=== PATIENT | female | born 1995 | race Two or more races ===

== ENCOUNTER 2025-06-08 01:41 | Inpatient (IN) | payer MEDICAID, OTHER ==
[~2025-06-08] VITALS: Ht 149.9 cm; Wt 97.1 kg
[2025-06-08] VITALS (7 sets, daily range): BP systolic 103–113; BP diastolic 62–80; PULSE 79–95; RESP 17–18; TEMP 97.7–98.4; O2SAT 94–100
--- NOTE | 2025-06-08 01:50 | ECG ---
[facility] Test Date: 2025-06-08 Test Time: 01:48:01 Pat Name: BRYNN AVILES Department: ED Room: [address] [place] [address] Gender: F Principal Examiner: FABIOLA : 1995 Requested By: YAHIR PERRY Order Number: [id number] Reading MD: Miguel Anne Measurements Intervals [place] Rate: 98 P: 0 NH: 0 QRS: 32 QRSD: 82 T: 0 QT: 335 QTc: 428 Interpretive Statements Atrial fibrillation Nonspecific T abnormalities, lateral leads Electronically Signed On 06-08-2025 17:50:37 PST by Miguel Anne Please click the below link to view image of tracing.
[2025-06-08 02:07] LABS: Hematocrit 43.7 % (36.0-46.0); Hemoglobin 14.7 g/dL (12.2-16.2); Mean Corpuscular Hemoglobin 29.5 pg (28.0-32.0); Mean Corpuscular Volume 87.7 fL (80.0-100.0); Nucleated Red Blood Cells % 0.0 %
[2025-06-08 02:18] LABS: Chloride 104 mmol/L (98-107); Potassium 4.7 mmol/L (3.5-5.1); Sodium 141 mmol/L (136-145)
[2025-06-08 02:19] LABS: Anion Gap 6 (5-15); Calcium 9.8 mg/dL (8.7-10.4); Carbon Dioxide 31 mmol/L (20-31)
--- NOTE | 2025-06-08 02:22 | ED.PDOC ---
HPI Comments 29 year old female presents to ER with complaints of chest pain x 1 day. Patient states she developed sudden onset of 8/10 sharp left sided chest pain with associated numbness/tingling radiation down left arm and shortness of breath at 8 p.m. prior to arrival to ER while resting at home. Notes she took a "Flexeril" for her pain without relief. Patient presents to ER ambulatory on arrival, with steady gait, in no distress and states her pain is worse with deep inspiration. Denies fever, n/v, recent illness, abdominal pain or any further symptoms/complaints Chief Complaint: Chest Pain Time Seen by MD: 01:44 Primary Care Provider: UNKNOWN Reviewed Notes: Nurses Notes, Medications, Allergies Allergies: Coded Allergies: Amitriptyline (Verified Allergy, Unknown, 06/08/25) Gabapentin (Verified Allergy, Unknown, 06/08/25) Sumatriptan (Verified Allergy, Unknown, 06/08/25) Home Meds Reported Medications Cyclobenzaprine Hcl (Cyclobenzaprine Hcl) 10 Mg Tab, 20 MG PO Q8HR for 30 Days, MG 06/08/25 Belimumab (Benlysta) 200 Mg/Ml Inj, 200 MG SC, INJ 06/08/25 Cholecalciferol (Vitamin D) 5,000 Unit Cap, 5000 UNIT PO, CAP 06/08/25 Rimegepant Sulfate (Nurtec) 75 Mg Tab, 75 MG PO, TAB 06/08/25 Lisinopril (Lisinopril) 2.5 Mg Tab, 2.5 MG PO DAILY for 30 Days, MG 06/08/25 Mycophenolate Mofetil (Cellcept) 500 Mg Tab, 1 TAB PO BID, #180 TAB 3 Refills 06/08/25 Hydroxychloroquine Sulfate (Hydroxychloroquine Sulfat) 200 Mg Tab, 200 MG PO for 30 Days, MG 06/08/25 Information Source: Patient Mode of Arrival: Ambulatory Past Medical History Past Medical History (Other): Lupus ITP Chronic back pain Surgical History: Appendectomy, Tubal Ligation Surgical History (Other): Right carpal tunnel surgery Social History Lives In: Home Constitutional: denies: chills, diaphoresis, fatigue, fever, malaise, sweats, weakness, others EENTM: denies: blurred vision, double vision, ear bleeding, ear discharge, ear drainage, ear pain, ear ringing, eye pain, eye redness, hearing loss, mouth pain, mouth swelling, nasal discharge, nose bleeding, nose congestion, nose pain, photophobia, tearing, throat pain, throat swelling, voice changes, others Respiratory: denies: cough, hemoptysis, orthopnea, SOB at rest, shortness of breath, SOB with excertion, stridor, wheezing, others Cardiovascular: reports: others (As stated in HPI) Gastrointestinal: denies: abdomen distended, abdominal pain, blood streaked bowels, constipated, diarrhea, dysphagia, difficulty swallowing, hematemesis, melena, nausea, poor appetite, poor fluid intake, rectal bleeding, rectal pain, vomiting, others Genitourinary: denies: abnormal vagina bleeding, burning, dyspareunia, dysuria, flank pain, frequency, hematuria, incontinence, pain, , vagina discharge, urgency, others Neurological: reports: others (As stated in HPI) Musculoskeletal: denies: back pain, gout, joint pain, joint swelling, muscle pain, muscle stiffness, neck pain, others Integumetry: denies: bruises, change in color, change in hair/nails, dryness, laceration, lesions, lumps, rash, wounds, others Allergic/Immunocompromised: denies: Difficulty Healing, Frequent Infections, Hives, Itching, others Hematologic/Lymphatic: denies: anemia, blood clots, easy bleeding, easy bruising, swollen glands, others Endocrine: denies: excessive hunger, excessive sweating, excessive thirst, excessive urination, flushing, intolerance to cold, intolerance to heat, unexplained weight gain, unexplained weight loss, others Psychiatric: denies: anxiety, bipolar disorder, depression, hopeless, panic disorder, schizophrenia, sleepless, suicidal, others Physical Exam General Appearance: No Apparent Distress, Obese HEENT: Normal ENT Inspection, PERRL/EOMI, Pharynx Normal, TMs Normal Neck: Full Range of Motion, Non-Tender, Normal Respiratory: Lungs Clear, No Accessory Muscle Use, No Respiratory Distress, N ormal Breath Sounds, Other (TTP to left upper chest wall noted) Cardiovascular: No Murmur, No Gallop, Regular Rate/Rhythm Breast Exam: Deferred Gastrointestinal: Non Tender, No Pulsatile Mass, Soft Genitalia: Deferred Pelvic: Deferred Rectal: Deferred Extremities: Normal capillary refill, Normal range of motion Neurologic: Alert, No Motor Deficits, Normal Affect, Normal Mood, No Sensory Deficits Cerebellar Function: Normal Reflexes: Normal Skin: Dry, Normal Color, Warm Peripheral Pulses: 2+ Radial (R), 2+ Radial (L), 2+ Brachial (R), 2+ Brachial (L) Lymphatic: No Adenopathy EKG EKG : Pulse Rate (adult): 98 Cardiac Rhythm: NSR (SR - No ST elevation/depression) Comments 2nd EKG reviewed Pulse rate - 89 Cardiac Rhythm - SR ST - Normal 3rd EKG reviewed Pulse rate- 84 Cardiac Rhythm - SR ST - normal Was a procedure done? Was a procedure done?: No Sedation Sedation?: No CP Differential Dx Differential Diagnosis: Hyperthyroidism, NC, Pulmonary Embolus, Sinus Tachycardia X-Ray, Labs, Meds, VS Vital Signs Date Time Temp Pulse Resp B/P (MAP) Pulse Ox O2 Delivery O2 Flow Rate FiO2 06/08/25 04:08 84 06/08/25 03:31 98 06/08/25 03:00 89 06/08/25 02:50 89 06/08/25 02:38 98 06/08/25 02:29 06/08/25 01:55 97.3 102 18 109/79 99 97.3 06/08/25 01:48 98 Lab Test 06/08/25 02:58 06/08/25 02:45 06/08/25 01:57 Range/Units Erythrocyte Sedimentation Rate 2 0-20 mm/hr Troponin I High Sensitivity < 3 L < 3 L </=34 ng/L Urine Color Light-yellow Yellow Urine Clarity Clear Clear Urine pH 6.0 5.0-9.0 Urine Specific [place] 1.023 1.001-1.035 Urine Protein Trace H Negative Urine Ketones Negative Negative Urine Blood Negative Negative /uL Urine Nitrite Negative Negative Urine Bilirubin Negative Negative Urine Urobilinogen Normal Negative mg/dL Urine Leukocyte Esterase 2+ Negative /uL Urine RBC 4 0 - 4 /hpf Urine Microscopic WBC 28 H 0-5 /HPF Urine Squamous Epithelial Cells Few <5 /hpf Urine Bacteria None seen None Seen /hpf Urine Glucose Normal Normal mg/dL White Blood Count 8.5 4.4-10.8 10^3/uL Red Blood Count 4.99 4.0-5.20 10^6/uL Hemoglobin 14.7 12.2-16.2 g/dL Hematocrit 43.7 36.0-46.0 % Mean Corpuscular Volume 87.7 80.0-100.0 fL Mean Corpuscular Hemoglobin 29.5 28.0-32.0 pg Mean Corpuscular Hemoglobin Concent 33.6 32.0-36.0 g/dL Red Cell Distribution Width 13.6 11.8-14.3 % Platelet Count 289 140-450 10^3/uL Mean Platelet Volume 7.8 6.9-10.8 fL Neutrophils (%) (Auto) 55.1 37.0-80.0 % Lymphocytes (%) (Auto) 32.0 10.0-50.0 % Monocytes (%) (Auto) 10.6 0.0-12.0 % Eosinophils (%) (Auto) 1.6 0.0-7.0 % Basophils (%) (Auto) 0.7 0.0-2.0 % Neutrophils # (Auto) 4.7 1.6-8.6 10 ^3/uL Lymphocytes # (Auto) 2.7 0.4-5.4 10 ^3/uL Monocytes # (Auto) 0.9 0-1.3 10 ^3/uL Eosinophils # (Auto) 0.1 0-0.8 10 ^3/uL Basophils # (Auto) 0.1 0-0.2 10 ^3/uL Nucleated Red Blood Cells 0.0 % Prothrombin Time 10.3 9.3-11.8 sec Prothrombin Time INR 0.97 0.9-1.15 Activated Partial Thromboplast Time 36.2 H 24.5-34.5 SEC D-Dimer, Quantitative < 0.19 0.0-0.49 mg/L FEU Sodium Level 141 136-145 mmol/L Potassium Level 4.7 3.5-5.1 mmol/L Chloride Level 104 98-107 mmol/L Carbon Dioxide Level 31 20-31 mmol/L Anion Gap 6 5-15 Blood Urea Nitrogen 14 9-23 mg/dL Creatinine 0.84 0.550-1.02 mg/dL Glomerular Filtration Rate Calc 97 >90 mL/min BUN/Creatinine Ratio 16.7 10.0-20.0 Serum Glucose 90 74-106 mg/dL Calcium Level 9.8 8.7-10.4 mg/dL Magnesium Level 2.2 1.6-2.6 mg/dL B-Type Natriuretic Peptide 1.60 0-100 pg/mL Thyroid Stimulating Hormone (TSH) 1.28 0.55-4.78 uIU/mL Hepatitis B Surface Antibody Pending Hepatitis C Antibody Pending Current Medications Medications (Trade) Dose Ordered Sig/Amira Route Start Time Stop Time Status Last Admin Aspirin 325 mg ONCE ONCE PO 06/08/25 02:30 06/08/25 02:31 DC 06/08/25 02:33 Ketorolac Tromethamine (Toradol Injection) 60 mg ONCE ONCE IM 06/08/25 03:15 06/08/25 03:16 DC 06/08/25 03:14 Ceftriaxone Sodium 50 ml @ 100 mls/hr ONCE ONCE IV 06/08/25 04:30 06/08/25 04:59 DC 06/08/25 05:14 PATIENT: BRYNN AVILESACCT: [id number]: [id number] : 1995 LOC: ER ROOM / BED: / AGE / SEX: 29 / F ADM STATUS: REG ER SERVICE 1 ORDERING PHYSICIAN: YAHIR PERRY PROCEDURE(s): CXR2 - CHEST TWO VIEWS ROUTINE REASON: chest pain ORDER NUMBER(s): [id number], ACCESSION NUMBER(s): [id number] CHEST RADIOGRAPH Indication: chest pain Technique: Frontal and lateral view of the chest was obtained Comparison: None FINDINGS: Lines and Tubes: None Lungs: Clear Pleura: No effusion. No pneumothorax. Cardiomediastinal contours: Unremarkable Bones: Unremarkable IMPRESSION: 1. No evidence of acute disease. ATED BY: DAGOBERTO DANIELS MD DICTATED DATE/TIME: 06/08/25246 SIGNED BY: DAGOBERTO DANIELS MD SIGNED DATE/TIME: 06/08/25246 CC: CBC reviewed - unremarkable BMP reviewed - unremarkable TSH reviewed - normal Magnesium reviewed- normal ESR reviewed - normal PT/PTT reviewed without any significant abnormalities D-dimer reviewed - normal Troponin reviewed- normal 2nd Troponin reviewed - normal 3rd Troponin ordered Urinalysis reviewed-urine leukocyte esterase 2+ Chest x-ray reviewed EKG reviewed 2nd EKG reviewed 3rd EKG reviewed Aspirin 325 mg p.o. ordered Toradol 60 mg IM ordered Hep-lock IV ordered Rocephin 1 g IV ordered Patient presents with persistent chest pain, normal serial EKG/troponin and history of lupus Patient admitted to hospitalist for pleuritic chest pain and need for cardiac observation/need for cardiac consultation Images Reviewed?: Images reviewed and evaluated by me Time of 1ST Reevaluation: 02:27 Reevaluation 1ST: N/A Patient Education/Counseling: Diagnosis, Treatment, Prognosis, Need For Follow Up Family Education/Counseling: No Family Present SEPSIS Sepsis Screen Date sepsis recognized/suspect: Jun 08, 2025 Time Sepsis recognized/suspect: 201 Recent Procedure: Yes (EPIDURAL FOR BACK PAIN ) On Antibiotic Therapy: No Respiratory Rate >20: No Heart Rate >90: No Temp<36 C (96.8 F) or >38.3 C: No SBP <90 or MAP <65 mmHG: No New Acute Mental Status Change: No Is the patient on CPAP, BIPAP,: No Physician Orders Electrocardigram (06/08/25 01:46) Electrocardigram (06/08/25 02:46) Director Of Reservations (06/08/25 02:12) Blood Pressure (06/08/25 02:12) Pulse Oximetry (06/08/25 02:12) Chest Two Views Routine (06/08/25 02:12) Heplock Iv (06/08/25 ) Electrocardigram (06/08/25 04:06) Vital Signs Date Time Temp Pulse Resp B/P (MAP) Pulse Ox O2 Delivery O2 Flow Rate FiO2 06/08/25 04:08 84 06/08/25 03:31 98 06/08/25 03:00 89 06/08/25 02:50 89 06/08/25 02:38 98 06/08/25 02:29 06/08/25 01:55 97.3 102 18 109/79 99 97.3 06/08/25 01:48 98 Laboratory Tests Test 06/08/25 01:57 White Blood Count 8.5 10^3/uL (4.4-10.8) Departure 1 Departure Time of Disposition: 03:40 Impression: Primary Impression: Pleuritic chest pain Additional Impressions: UTI (urinary tract infection) Qualified Codes: N30.00 - Acute cystitis without hematuria History of lupus Disposition: ADMITTED INPATIENT Condition: Stable Critical Care Note Critical Care Time?: No Stability Stability form required: No Heart Score Heart Score: Heart Score Response (Comments) Value History Slightly Suspicious 0 EKG Normal 0 Age <45 0 Risk Factors 1 or 2 risk factors 1 Troponin Normal limit 0 Total 1 YAHIR PERRY Jun 08, 2025 02:22
[2025-06-08 02:24] LABS: BUN/Creatinine Ratio 16.7 (10.0-20.0); Blood Urea Nitrogen 14 mg/dL (9-23); Glucose 90 mg/dL (74-106)
--- NOTE | 2025-06-08 02:50 | DVH ---
CHEST RADIOGRAPH Indication: chest pain Technique: Frontal and lateral view of the chest was obtained Comparison: None FINDINGS: Lines and Tubes: None Lungs: Clear Pleura: No effusion. No pneumothorax. Cardiomediastinal contours: Unremarkable Bones: Unremarkable IMPRESSION: 1. No evidence of acute disease.
--- NOTE | 2025-06-08 02:52 | ECG ---
[facility] Test Date: 2025-06-08 Test Time: 02:50:08 Pat Name: BRYNN AVILES Department: ER Room: [address] [place] [address] Gender: F Post Partum Nurse: KUSH : 1995 Requested By: YAHIR PERRY Order Number: [id number] Reading MD: Miguel Anne Measurements Intervals [place] Rate: 89 P: 45 MO: 104 QRS: 44 QRSD: 83 T: 31 QT: 346 QTc: 421 Interpretive Statements Sinus rhythm Short MO interval Electronically Signed On 06-08-2025 17:50:48 PST by Miguel Anne Please click the below link to view image of tracing.
[2025-06-08 02:54] LABS: INR 0.97 (0.9-1.15); Partial Thromboplastin Time 36.2 SEC (24.5-34.5); Prothrombin Time 10.3 sec (9.3-11.8)
[2025-06-08] MEDS: KETOROLAC TROMETH 60MG/2ML VIAL IM ONE (03:14)
[2025-06-08 03:33] LABS: Urine Protein, UAD TRACE (Negative)
[2025-06-08] MEDS ORDERED: IBUP-1456 PO (03:37)
[2025-06-08] MEDS ORDERED: BACDST PO (03:37)
--- NOTE | 2025-06-08 04:10 | ECG ---
[facility] Test Date: 2025-06-08 Test Time: 04:08:39 Pat Name: BRYNN AVILES Department: ER Room: [address] [place] [address] Gender: F Role Player: SHERIN : 1995 Requested By: YAHIR PERRY Order Number: [id number] Reading MD: Miguel Anne Measurements Intervals [place] Rate: 84 P: 51 RI: 107 QRS: 53 QRSD: 83 T: 35 QT: 356 QTc: 421 Interpretive Statements Sinus rhythm Short RI interval Electronically Signed On 06-08-2025 17:50:59 PST by Miguel Anne Please click the below link to view image of tracing.
--- NOTE | 2025-06-08 04:52 | DVHHP2 ---
Review of Systems Allergies: Coded Allergies: Amitriptyline (Verified Allergy, Unknown, 06/08/25) Gabapentin (Verified Allergy, Unknown, 06/08/25) Sumatriptan (Verified Allergy, Unknown, 06/08/25) Exam Vital Signs Vital Signs Date Time Temp Pulse Resp B/P (MAP) Pulse Ox O2 Delivery O2 Flow Rate FiO2 06/08/25 03:31 98 06/08/25 01:55 97.3 18 109/79 99 97.3 Labs/Xrays Labs Test 06/08/25 02:58 06/08/25 02:45 06/08/25 01:57 Range/Units Erythrocyte Sedimentation Rate 2 0-20 mm/hr Troponin I High Sensitivity < 3 L </=34 ng/L Urine Color Light-yellow Yellow Urine Clarity Clear Clear Urine pH 6.0 5.0-9.0 Urine Specific [place] 1.023 1.001-1.035 Urine Protein Trace H Negative Urine Ketones Negative Negative Urine Blood Negative Negative /uL Urine Nitrite Negative Negative Urine Bilirubin Negative Negative Urine Urobilinogen Normal Negative mg/dL Urine Leukocyte Esterase 2+ Negative /uL Urine RBC 4 0 - 4 /hpf Urine Microscopic WBC 28 H 0-5 /HPF Urine Squamous Epithelial Cells Few <5 /hpf Urine Bacteria None seen None Seen /hpf Urine Glucose Normal Normal mg/dL White Blood Count 8.5 4.4-10.8 10^3/uL Red Blood Count 4.99 4.0-5.20 10^6/uL Hemoglobin 14.7 12.2-16.2 g/dL Hematocrit 43.7 36.0-46.0 % Mean Corpuscular Volume 87.7 80.0-100.0 fL Mean Corpuscular Hemoglobin 29.5 28.0-32.0 pg Mean Corpuscular Hemoglobin Concent 33.6 32.0-36.0 g/dL Red Cell Distribution Width 13.6 11.8-14.3 % Platelet Count 289 140-450 10^3/uL Mean Platelet Volume 7.8 6.9-10.8 fL Neutrophils (%) (Auto) 55.1 37.0-80.0 % Lymphocytes (%) (Auto) 32.0 10.0-50.0 % Monocytes (%) (Auto) 10.6 0.0-12.0 % Eosinophils (%) (Auto) 1.6 0.0-7.0 % Basophils (%) (Auto) 0.7 0.0-2.0 % Neutrophils # (Auto) 4.7 1.6-8.6 10 ^3/uL Lymphocytes # (Auto) 2.7 0.4-5.4 10 ^3/uL Monocytes # (Auto) 0.9 0-1.3 10 ^3/uL Eosinophils # (Auto) 0.1 0-0.8 10 ^3/uL Basophils # (Auto) 0.1 0-0.2 10 ^3/uL Nucleated Red Blood Cells 0.0 % Prothrombin Time 10.3 9.3-11.8 sec Prothrombin Time INR 0.97 0.9-1.15 Activated Partial Thromboplast Time 36.2 H 24.5-34.5 SEC D-Dimer, Quantitative < 0.19 0.0-0.49 mg/L FEU Sodium Level 141 136-145 mmol/L Potassium Level 4.7 3.5-5.1 mmol/L Chloride Level 104 98-107 mmol/L Carbon Dioxide Level 31 20-31 mmol/L Anion Gap 6 5-15 Blood Urea Nitrogen 14 9-23 mg/dL Creatinine 0.84 0.550-1.02 mg/dL Glomerular Filtration Rate Calc 97 >90 mL/min BUN/Creatinine Ratio 16.7 10.0-20.0 Serum Glucose 90 74-106 mg/dL Calcium Level 9.8 8.7-10.4 mg/dL Magnesium Level 2.2 1.6-2.6 mg/dL B-Type Natriuretic Peptide 1.60 0-100 pg/mL Thyroid Stimulating Hormone (TSH) 1.28 0.55-4.78 uIU/mL SEPSIS Sepsis Screen Date sepsis recognized/suspect: Jun 08, 2025 Time Sepsis recognized/suspect: 0202 Recent Procedure: Yes (EPIDURAL FOR BACK PAIN ) On Antibiotic Therapy: No Respiratory Rate >20: No Heart Rate >90: No Temp<36 C (96.8 F) or >38.3 C: No SBP <90 or MAP <65 mmHG: No New Acute Mental Status Change: No Is the patient on CPAP, BIPAP,: No Physician Orders Plugger (06/08/25 02:12) Blood Pressure (06/08/25 02:12) Pulse Oximetry (06/08/25 02:12) Chest Two Views Routine (06/08/25 02:12) Heplock Iv (06/08/25 ) Troponin-I Hs (06/08/25 04:06) Ceftriaxone 1gm/50ml (Rocephin) (06/08/25 04:30) Ceftriaxone Ivpb Rocephin (06/08/25 09:00) Lisinopril Tablet (Zestril Tablet) (06/08/25 10:00) Thyroid Stimulating Hormone (06/08/25 04:48) Lipid Panel (06/08/25 04:48) Vital Signs Date Time Temp Pulse Resp B/P (MAP) Pulse Ox O2 Delivery O2 Flow Rate FiO2 06/08/25 03:31 98 06/08/25 03:00 89 06/08/25 02:50 89 06/08/25 02:38 98 06/08/25 02:29 06/08/25 01:55 97.3 102 18 109/79 99 97.3 06/08/25 01:48 98 Laboratory Tests Test 06/08/25 01:57 White Blood Count 8.5 10^3/uL (4.4-10.8) Medications Medications Dose Ordered Sig/Amira Route Start Time Stop Time Status Last Admin Dose Admin Aspirin 325 mg ONCE ONCE PO 06/08/25 02:30 06/08/25 02:31 DC 06/08/25 02:33 325 MG Ketorolac Tromethamine 60 mg ONCE ONCE IM 06/08/25 03:15 06/08/25 03:16 DC 06/08/25 03:14 60 MG Assessment/Plan Plan discussed with: Patient My Orders Orders - JANETH VAUGHN Procedure Category Date Status Time Ceftriaxone Ivpb PHA 06/08/25 Verified Rocephin 09:00 Lisinopril Tablet PHA 06/08/25 Verified (Zestril Tablet) 10:00 Thyroid Stimulating LAB 06/08/25 Verified Hormone 04:48 Lipid Panel LAB 06/08/25 Verified 04:48 Date of Service: Jun 08, 2025 Billing Provider: JANETH VAUGHN Common Visit Codes: [id number] INP/OBS CARE (HIGH) JANETH VAUGHN Jun 08, 2025 04:52
[2025-06-08] MEDS: MORPHINE SULFATE 4 MG/ML SYR/VIAL IV ONE (05:15)
[2025-06-08] MEDS: ONDANSETRON HCL 4 MG/2 ML VIAL IV PRN (05:15)
[2025-06-08] MEDS: NITROGLYCERIN 0.4 MG SL TAB SL ONE (05:16)
[2025-06-08] MEDS: ONDANSETRON ODT 4 MG TAB PO ONE (05:16)
[2025-06-08] MEDS: NITROGLYCERIN 0.4 MG SL TAB SL PRN (08:05)
[2025-06-08 09:02] LABS: Triglycerides 84 mg/dL (< 150)
[2025-06-08 09:04] LABS: HDL Cholesterol 52 mg/dL (40-59)
[2025-06-08 09:05] LABS: Cholesterol 157 mg/dL (< 200)
[2025-06-08] MEDS: ACETAMINOPHEN 325 MG TAB PO PRN (09:37)
[2025-06-08] MEDS: LISINOPRIL 5 MG TAB PO SCH (10:00)
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
[2025-06-08] MEDS: KETOROLAC TROMETH 30 MG/ML 1ML VIAL IV ONE (15:07)
[2025-06-08] MEDS: MORPHINE SULFATE 4 MG/ML SYR/VIAL IV PRN (16:59)
[2025-06-08] MEDS ORDERED: HYDR200T36 PO (17:59)
[2025-06-08] MEDS ORDERED: MYCO500T PO (18:03)
[2025-06-08] MEDS ORDERED: RIME75TA PO (18:03)
[2025-06-08] MEDS ORDERED: LISI2.5T47 PO (18:03)
[2025-06-08] MEDS ORDERED: CHOL500035 PO (18:04)
[2025-06-08] MEDS ORDERED: [UNRECOGNIZED DRUG - CODE] SC (18:05)
[2025-06-08] MEDS ORDERED: CYCL-839 PO (18:07)
--- NOTE | 2025-06-08 19:35 | DVHSR ---
APPROVED REPORT EXAM: Two-dimensional and M-mode echocardiogram with Doppler and color Doppler. Blood Pressure: 103/53 mmHg INDICATION Chest Pain RISK FACTORS Height: 4' 11", Weight: 208 DIMENSIONS LVDd 4.4 (3.8-5.7cm) LA (2D) 3.3 (1.9-4.0cm) Aortic Root 2.5 (2.0-3.7cm) LVDs 3.3 (2.5-4.0cm) LA (MM) (1.9-4.0cm) Aortic Cusp Exc 1.6 (1.5-2.0cm) EF (%) 50.0 (55-70%) Rt. Atrium 3.1 (1.9-4.0cm) Asc. Aorta cm IVSd 0.8 (0.7-1.1cm) RV (D) (1.8-2.4cm) PWd 0.8 (0.7-1.1cm) Mitral Valve Mitral Mitral Stenosis E wave 0.80m/s MV Mean GR. mmHg A wave 0.60m/s MV Peak GR. mmHg E/A ratio 1.3 2D MVA cm2 Aortic Valve Aortic Valve Aortic Stenosis V1 0.70m/s AO Mean GR. 4mmHg V2 1.30m/s AO Peak GR. 7mmHg LVOT Diameter 1.9 (1.8-2.4cm) Doppler EDIN 1.53cm2 Pulmonic Valve V2 0.60m/s Conclusion Technically good study. Sinus rhythm. Valves are normal. EF of 60% with normal RV function. Dopplers unremarkable. No pericardial effusion masses or vegetations.
[2025-06-08] MEDS: MORPHINE SULFATE INJ 2 MG/ml SYRG IV PRN (21:32)
--- NOTE | 2025-06-08 23:07 | DVHHP2 ---
History of Present Illness Reason for Visit: Chest pain History of Present Illness 29-year-old female presents for evaluation of chest pain. Patient reports a two day history of left-sided sharp chest pain. She reports some pain that radiates to her left arm. She also reports mild shortness for breath. No cough or fever. No other acute complaints. Past Medical History Hypertension, lupus, ITP Past Surgical History Appendectomy, tubal ligation Family History Noncontributory Smoke: No ALCOHOL: none Drugs: None Lives: with Family Review of Systems Review of Systems Review of systems are currently negative otherwise addressed in HPI. Allergies: Coded Allergies: Amitriptyline (Verified Allergy, Unknown, 06/08/25) Gabapentin (Verified Allergy, Unknown, 06/08/25) Sumatriptan (Verified Allergy, Unknown, 06/08/25) Medications Current Medications Medications Dose Ordered Sig/Amira Route Start Time Stop Time Status Last Admin Dose Admin Ceftriaxone Sodium 50 ml @ 100 mls/hr DAILY@09 IV 06/09/25 09:00 Lisinopril 2.5 mg DAILY PO 06/08/25 10:00 Ondansetron HCl 4 mg Q4HP PRN IV 06/08/25 05:00 06/08/25 05:15 4 MG Acetaminophen 650 mg Q6HP PRN PO 06/08/25 05:00 06/08/25 09:37 650 MG Nitroglycerin 0.4 mg Q5MINP PRN SL 06/08/25 05:00 06/08/25 08:05 0.4 MG Morphine Sulfate 2 mg Q30M PRN IV 06/08/25 05:00 06/08/25 16:59 2 MG Morphine Sulfate 2 mg Q4HPRN PRN IV 06/08/25 18:15 06/08/25 21:32 2 MG Exam Vital Signs Vital Signs Date Time Temp Pulse Resp B/P (MAP) Pulse Ox O2 Delivery O2 Flow Rate FiO2 06/08/25 21:32 83 18 110/80 06/08/25 20:50 98.4 100 98.4 06/08/25 20:00 Room Air* 0 21 Exam Gen: 29-year-old female in mild distress, morbidly obese Skin: Warm, dry, normal color and texture, no rash. HEENT: Normocephalic atraumatic, mucous membranes moist and pink. Neck: Cervical and supraclavicular nodes normal without enlargement, trachea is midline, thyroid gland is normal without masses. Pulmonary: Clear to auscultation and percussion bilaterally. Cardiac: Regular rate and rhythm. No murmur Abdomen: Soft, nontender, nondistended, bowel sounds present all 4 quadrants, no guarding, no rigidity, no organomegaly. Extremities: No cyanosis, clubbing, no edema Neuro: Cranial nerves II through XII grossly intact, normal affect and speech, no focal motor deficits. Labs/Xrays ORDERING PHYSICIAN: YAHIR PERRY PROCEDURE(s): CXR2 - CHEST TWO VIEWS ROUTINE REASON: chest pain ORDER NUMBER(s): [id number], ACCESSION NUMBER(s): [id number] CHEST RADIOGRAPH Indication: chest pain Technique: Frontal and lateral view of the chest was obtained Comparison: None FINDINGS: Lines and Tubes: None Lungs: Clear Pleura: No effusion. No pneumothorax. Cardiomediastinal contours: Unremarkable Bones: Unremarkable IMPRESSION: 1. No evidence of acute disease. Labs Test 06/08/25 05:22 06/08/25 02:58 06/08/25 02:45 06/08/25 01:57 Range/Units Troponin I High Sensitivity 5 </=34 ng/L Triglycerides Level 84 < 150 mg/dL Cholesterol Level 157 < 200 mg/dL LDL Cholesterol 100 H < 100 mg/dL HDL Cholesterol 52 40-59 mg/dL Thyroid Stimulating Hormone (TSH) 1.27 0.55-4.78 uIU/mL Erythrocyte Sedimentation Rate 2 0-20 mm/hr Urine Color Light-yellow Yellow Urine Clarity Clear Clear Urine pH 6.0 5.0-9.0 Urine Specific [place] 1.023 1.001-1.035 Urine Protein Trace H Negative Urine Ketones Negative Negative Urine Blood Negative Negative /uL Urine Nitrite Negative Negative Urine Bilirubin Negative Negative Urine Urobilinogen Normal Negative mg/dL Urine Leukocyte Esterase 2+ Negative /uL Urine RBC 4 0 - 4 /hpf Urine Microscopic WBC 28 H 0-5 /HPF Urine Squamous Epithelial Cells Few <5 /hpf Urine Bacteria None seen None Seen /hpf Urine Glucose Normal Normal mg/dL White Blood Count 8.5 4.4-10.8 10^3/uL Red Blood Count 4.99 4.0-5.20 10^6/uL Hemoglobin 14.7 12.2-16.2 g/dL Hematocrit 43.7 36.0-46.0 % Mean Corpuscular Volume 87.7 80.0-100.0 fL Mean Corpuscular Hemoglobin 29.5 28.0-32.0 pg Mean Corpuscular Hemoglobin Concent 33.6 32.0-36.0 g/dL Red Cell Distribution Width 13.6 11.8-14.3 % Platelet Count 289 140-450 10^3/uL Mean Platelet Volume 7.8 6.9-10.8 fL Neutrophils (%) (Auto) 55.1 37.0-80.0 % Lymphocytes (%) (Auto) 32.0 10.0-50.0 % Monocytes (%) (Auto) 10.6 0.0-12.0 % Eosinophils (%) (Auto) 1.6 0.0-7.0 % Basophils (%) (Auto) 0.7 0.0-2.0 % Neutrophils # (Auto) 4.7 1.6-8.6 10 ^3/uL Lymphocytes # (Auto) 2.7 0.4-5.4 10 ^3/uL Monocytes # (Auto) 0.9 0-1.3 10 ^3/uL Eosinophils # (Auto) 0.1 0-0.8 10 ^3/uL Basophils # (Auto) 0.1 0-0.2 10 ^3/uL Nucleated Red Blood Cells 0.0 % Prothrombin Time 10.3 9.3-11.8 sec Prothrombin Time INR 0.97 0.9-1.15 Activated Partial Thromboplast Time 36.2 H 24.5-34.5 SEC D-Dimer, Quantitative < 0.19 0.0-0.49 mg/L FEU Sodium Level 141 136-145 mmol/L Potassium Level 4.7 3.5-5.1 mmol/L Chloride Level 104 98-107 mmol/L Carbon Dioxide Level 31 20-31 mmol/L Anion Gap 6 5-15 Blood Urea Nitrogen 14 9-23 mg/dL Creatinine 0.84 0.550-1.02 mg/dL Glomerular Filtration Rate Calc 97 >90 mL/min BUN/Creatinine Ratio 16.7 10.0-20.0 Serum Glucose 90 74-106 mg/dL Calcium Level 9.8 8.7-10.4 mg/dL Magnesium Level 2.2 1.6-2.6 mg/dL B-Type Natriuretic Peptide 1.60 0-100 pg/mL SEPSIS Sepsis Screen Date sepsis recognized/suspect: Jun 08, 2025 Time Sepsis recognized/suspect: 758 Recent Procedure: No On Antibiotic Therapy: No Respiratory Rate >20: No Heart Rate >90: No Temp<36 C (96.8 F) or >38.3 C: No SBP <90 or MAP <65 mmHG: No New Acute Mental Status Change: No Is the patient on CPAP, BIPAP,: No Physician Orders Hepatitis C Antibody (06/08/25 16:11) Hepatitis B Surface Antibody (06/08/25 16:11) Morphine Sulfate Injection (06/08/25 18:15) Transfer Orders (06/08/25 23:01) Ketorolac Injection (Toradol Injection) (06/08/25 23:15) Vital Signs Date Time Temp Pulse Resp B/P (MAP) Pulse Ox O2 Delivery O2 Flow Rate FiO2 06/08/25 21:32 83 18 110/80 06/08/25 20:50 98.4 83 17 110/80 (90) 100 98.4 06/08/25 20:00 Room Air* 0 21 06/08/25 19:16 97.7 79 17 103/63 (76) 98 97.7 06/08/25 18:45 Room Air* 0 21 06/08/25 17:29 90 16 108/72 06/08/25 17:00 98.2 95 18 113/76 (88) 99 98.2 06/08/25 16:59 99 19 113/76 Medications Medications Dose Ordered Sig/Amira Route Start Time Stop Time Status Last Admin Dose Admin Ketorolac Tromethamine 15 mg ONCE ONCE IV 06/08/25 14:00 06/08/25 14:02 DC 06/08/25 15:07 15 MG Morphine Sulfate 2 mg Q4HPRN PRN IV 06/08/25 18:15 06/08/25 21:32 2 MG Assessment/Plan Assessment/Plan Assessment Chest pain,? Musculoskeletal History of lupus Hypertension UTI Morbid obesity Plan Admit the patient to telemetry to the hospitalist Cardiology consultation Echocardiogram pending Resume home medications Continue treatment per orders. Plan discussed with: Patient My Orders Orders - JANETH VAUGHN Procedure Category Date Status Time Lisinopril Tablet PHA 06/08/25 In Process (Zestril Tablet) 10:00 Basic Metabolic Panel LAB 06/09/25 Verified 04:00 Admit ADMIT 06/08/25 Transmitted 04:48 Ondansetron Hcl PHA 06/08/25 In Process (Zofran) 05:00 Cardiac DIET 06/08/25 Transmitted Diet-2gna,Lofat,Lochol Breakfast Echo 2d Mode Cardiac US 06/08/25 Resulted DOP 04:48 Condition: Fair [facility] 06/08/25 In Process 04:48 Acetaminophen Tablet PHA 06/08/25 In Process (Tylenol Tablet) 05:00 Bedrest With Bathroom [facility] 06/08/25 In Process Privileg 04:48 Nitroglycerin [facility] 06/08/25 In Process Sublingual (Ntrostat 05:00 Stat Ekg For Chest [facility] 06/08/25 In Process Pain 04:48 Notify Md Of Changes [facility] 06/08/25 In Process From Base 04:48 Bagger Meat For [facility] 06/08/25 In Process 24 Hours 04:48 Emergency Dysrhythmia [facility] 06/08/25 In Process Protocol 04:48 Rhythm Strips Once [facility] 06/08/25 In Process Every Shift 04:48 Oxygen By Nasal RT 06/08/25 Transmitted Cannula 04:48 Ceftriaxone 1gm/50ml PHA 06/09/25 In Process (Rocephin) 09:00 Morphine Sulfate PHA 06/08/25 In Process Injection 05:00 Electrocardigram EKG 06/08/25 Logged 08:14 Transfer Orders XFER 06/08/25 Transmitted 23:01 Ketorolac Injection PHA 06/08/25 Transmitted (Toradol Injection) 23:15 Date of Service: Jun 08, 2025 Billing Provider: BRYNN GHOSH Common Visit Codes: [id number] INP/OBS CARE (HIGH) JANETH VAUGHN Jun 08, 2025 23:07
[2025-06-08] MEDS ORDERED: KETOROLAC TROMETH 30 MG/ML 1ML VIAL IV PRN (23:15)
[2025-06-09 03:55] VITALS: BP 105/70; PULSE 80; RESP 17; TEMP 97.5; O2SAT 98
[2025-06-09 06:03] LABS: Potassium 4.5 mmol/L (3.5-5.1); Sodium 142 mmol/L (136-145)
[2025-06-09 06:04] LABS: Anion Gap 7 (5-15); Calcium 9.6 mg/dL (8.7-10.4); Carbon Dioxide 28 mmol/L (20-31)
[2025-06-09 06:09] LABS: BUN/Creatinine Ratio 12.7 (10.0-20.0); Blood Urea Nitrogen 10 mg/dL (9-23); Glucose 84 mg/dL (74-106)
[2025-06-09 06:10] LABS: Chloride 107 mmol/L (98-107)
[2025-06-09 08:00] VITALS: PULSE 77; RESP 15; O2SAT 98
[2025-06-09 08:55] VITALS: BP 110/72; PULSE 85; RESP 16; TEMP 97.7; O2SAT 98
[2025-06-09] MEDS: KETOROLAC TROMETH 30 MG/ML 1ML VIAL IV PRN (09:30)
[2025-06-09 12:45] VITALS: BP 104/68; PULSE 86; RESP 18; TEMP 98.7; O2SAT 95
[2025-06-09] MEDS ORDERED: HYDR-4902 PO (16:10)
[2025-06-09] MEDS ORDERED: NALO4SPR2 (16:10)
--- NOTE | 2025-06-09 16:18 | DVHDS2 ---
Discharge Summary Date of Admission Jun 08, 2025 at 04:48 Date of Discharge: Jun 09, 2025 Labs/Diagnostic Data: Laboratory Results Test 06/09/25 05:28 06/08/25 05:22 06/08/25 02:58 06/08/25 02:45 Sodium Level 142 mmol/L (136-145) Potassium Level 4.5 mmol/L (3.5-5.1) Chloride Level 107 mmol/L (98-107) Carbon Dioxide Level 28 mmol/L (20-31) Anion Gap 7 (5-15) Blood Urea Nitrogen 10 mg/dL (9-23) Creatinine 0.79 mg/dL (0.550-1.02) Glomerular Filtration Rate Calc 104 mL/min (>90) BUN/Creatinine Ratio 12.7 (10.0-20.0) Serum Glucose 84 mg/dL (74-106) Calcium Level 9.6 mg/dL (8.7-10.4) Troponin I High Sensitivity 5 ng/L (</=34) Triglycerides Level 84 mg/dL (< 150) Cholesterol Level 157 mg/dL (< 200) LDL Cholesterol 100 mg/dL (< 100) HDL Cholesterol 52 mg/dL (40-59) Thyroid Stimulating Hormone (TSH) 1.27 uIU/mL (0.55-4.78) Erythrocyte Sedimentation Rate 2 mm/hr (0-20) Urine Color Light-yellow (Yellow) Urine Clarity Clear (Clear) Urine pH 6.0 (5.0-9.0) Urine Specific [place] 1.023 (1.001-1.035) Urine Protein Trace (Negative) Urine Ketones Negative (Negative) Urine Blood Negative /uL (Negative) Urine Nitrite Negative (Negative) Urine Bilirubin Negative (Negative) Urine Urobilinogen Normal mg/dL (Negative) Urine Leukocyte Esterase 2+ /uL (Negative) Urine RBC 4 /hpf (0 - 4) Urine Microscopic WBC 28 /HPF (0-5) Urine Squamous Epithelial Cells Few /hpf (<5) Urine Bacteria None seen /hpf (None Seen) Urine Glucose Normal mg/dL (Normal) Test 06/08/25 01:57 White Blood Count 8.5 10^3/uL (4.4-10.8) Red Blood Count 4.99 10^6/uL (4.0-5.20) Hemoglobin 14.7 g/dL (12.2-16.2) Hematocrit 43.7 % (36.0-46.0) Mean Corpuscular Volume 87.7 fL (80.0-100.0) Mean Corpuscular Hemoglobin 29.5 pg (28.0-32.0) Mean Corpuscular Hemoglobin Concent 33.6 g/dL (32.0-36.0) Red Cell Distribution Width 13.6 % (11.8-14.3) Platelet Count 289 10^3/uL (140-450) Mean Platelet Volume 7.8 fL (6.9-10.8) Neutrophils (%) (Auto) 55.1 % (37.0-80.0) Lymphocytes (%) (Auto) 32.0 % (10.0-50.0) Monocytes (%) (Auto) 10.6 % (0.0-12.0) Eosinophils (%) (Auto) 1.6 % (0.0-7.0) Basophils (%) (Auto) 0.7 % (0.0-2.0) Neutrophils # (Auto) 4.7 10 ^3/uL (1.6-8.6) Lymphocytes # (Auto) 2.7 10 ^3/uL (0.4-5.4) Monocytes # (Auto) 0.9 10 ^3/uL (0-1.3) Eosinophils # (Auto) 0.1 10 ^3/uL (0-0.8) Basophils # (Auto) 0.1 10 ^3/uL (0-0.2) Nucleated Red Blood Cells 0.0 % Prothrombin Time 10.3 sec (9.3-11.8) Prothrombin Time INR 0.97 (0.9-1.15) Activated Partial Thromboplast Time 36.2 SEC (24.5-34.5) D-Dimer, Quantitative < 0.19 mg/L FEU (0.0-0.49) Magnesium Level 2.2 mg/dL (1.6-2.6) B-Type Natriuretic Peptide 1.60 pg/mL (0-100) Other Laboratory Tests 06/09/25 05:28 06/08/25 01:57 Brief Hx & Hospital Course: 29-year-old young female with a known history of lupus nephritis, systemic lupus erythematosus, ITP currently stable, morbid obesity class three presented to the hospital with the chest pain eventually patient was admitted to a monitored on telemetry 2D echo was done as well as Cardiology was consulted. Patient's chest pain is suspected secondary to costochondritis atypical pain. Patient's tropes are -12 lead EKG shows no acute STT wave changes. Patient is being discharged under stable condition. Condition at Discharge: Stable Final Diagnosis/Problems List 1. Chest pain acute TX ruled out, likely atypical chest pain secondary to costochondritis 2. Costochondritis 3. Lupus nephritis 4. Systemic lupus erythematosus 5. ITP currently platelet count stable 6. Morbid obesity classIII Discharge Disposition: Home SNF Discharge Will this Physician continue t: No Discharge Instruct/Medications Diet: Cardiac 2g Na,low cholest Activity: See Comment Activity comment: No driving, no signing legal documents, no playing on machinery while on narcotics. Follow Up/Referral: Follow up with the PCP in 1-2 weeks. 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 Continued Medications: Belimumab (Benlysta) 200 Mg/Ml Inj 200 MG SC, INJ Cholecalciferol (Vitamin D) 5,000 Unit Cap 5000 UNIT PO, CAP Cyclobenzaprine Hcl (Cyclobenzaprine Hcl) 10 Mg Tab 20 MG PO Q8HR for 30 Days, MG Hydroxychloroquine Sulfate (Hydroxychloroquine Sulfat) 200 Mg Tab 200 MG PO for 30 Days, MG Lisinopril (Lisinopril) 2.5 Mg Tab 2.5 MG PO DAILY for 30 Days, MG Mycophenolate Mofetil (Cellcept) 500 Mg Tab 1 TAB PO BID, #180 TAB 3 Refills Rimegepant Sulfate (Nurtec) 75 Mg Tab 75 MG PO, TAB Scheduled Cyclobenzaprine Hcl (Cyclobenzaprine Hcl), 20 MG PO Q8HR, (Reported) Lisinopril (Lisinopril), 2.5 MG PO DAILY, (Reported) Mycophenolate Mofetil (Cellcept), 1 TAB PO BID, (Reported) 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), 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 Patient was counseled about treatment plan, medications, possible side effects, patientverbalized understanding. All questions were answered to the best of my ability. This discharge took greater then 30 minutes in planning, reviewing documentation, counseling the patient, and discussing with other team members." ASSESSMENT ASSESSMENT Assessment 1. Chest pain acute TX ruled out, likely atypical chest pain secondary to costochondritis 2. Costochondritis 3. Lupus nephritis 4. Systemic lupus erythematosus 5. ITP currently platelet count stable 6. Morbid obesity classIII Date of Service: Jun 09, 2025 Billing Provider: SHIRLEY ZHANG MD Common Visit Codes: [id number]/OBS DISCH DAY >30min SHIRLEY ZHANG MD Jun 09, 2025 16:18
[2025-06-09 16:53] VITALS: PULSE 59
[2025-06-09 17:06] VITALS: BP 108/60; PULSE 94; RESP 19; TEMP 98.3; O2SAT 96
[2025-06-10 10:48] LABS: Hepatitis C Antibody Negative (Negative)
--- NOTE | 2025-06-13 07:06 | ECG ---
[facility] Test Date: 2025-06-08 Test Time: 08:12:39 Pat Name: BRYNN AVILES Department: Room: [address] [place] [address] 3 Gender: F [employer] Functional Tester: DR CABALLERO: 1995 Requested By: JANETH VAUGHN Order Number: [id number] Reading MD: Miguel Anne Measurements Intervals [place] Rate: 76 P: 47 SD: 115 QRS: 50 QRSD: 83 T: 29 QT: 385 QTc: 433 Interpretive Statements Sinus rhythm Borderline short SD interval Electronically Signed On 06-14-2025 9:54:02 PST by Miguel Anne Please click the below link to view image of tracing.
== END 2025-06-09 16:49 | disposition home or self-care (01) | DRG 203 ==
LOC: ER 01:41 → OVERFLOW 04:48 → TELE-EAST 18:43
PROVIDERS: ADMIT Internal Medicine; ATTEND Internal Medicine
DX: M94.0 Chondrocostal junction syndrome [Tietze] (principal); M32.14 Glomerular disease in systemic lupus erythematosus; G43.909 Migraine, unspecified, not intractable, without status migrainosus; I48.91 Unspecified atrial fibrillation; E66.813 Obesity, class 3; N39.0 Urinary tract infection, site not specified; I10 Essential (primary) hypertension; G89.29 Other chronic pain; Z88.8 Allergy status to other drugs, medicaments and biological substances; Z81.8 Family history of other mental and behavioral disorders; Z98.51 Tubal ligation status; Z68.41 Body mass index [BMI] 40.0-44.9, adult
CPT/HCPCS: 36415; 71046; 80048; 80061; 81001; 83735; 83880; 84443; 84484; 85025; 85379; 85610; 85652; 85730; 86706; 86803; 93005; 93306; 96365; 96372; 96375; G0378; J1885; J2405

== ENCOUNTER 2025-06-24 18:25 | Inpatient (IN) | payer MEDICAID ==
[~2025-06-24] VITALS: Ht 154.9 cm; Wt 97.0 kg
[~2025-06-24 18:25] MED LIST: CHOL500035 PO; CYCL-839 PO; HYDR-4902 PO; HYDR200T36 PO; LISI2.5T47 PO; MYCO500T PO; NALO4SPR2; RIME75TA PO; [UNRECOGNIZED DRUG - CODE] SC
[2025-06-24] MEDS ORDERED: SODIUM CHLORIDE 0.9% 1,000 ML IVB ONE (18:45)
[2025-06-24] MEDS: ACETAMINOPHEN 325 MG TAB PO ONE (18:51)
[2025-06-24] MEDS: SODIUM CHLORIDE 0.9% 1,400 ML IV ONE (18:59)
[2025-06-24] MEDS: MORPHINE SULFATE 4 MG/ML SYR/VIAL IV ONE (19:01)
[2025-06-24] MEDS: ONDANSETRON HCL 4 MG/2 ML VIAL IV ONE (19:01)
--- NOTE | 2025-06-24 19:34 | ED.PDOC ---
GI ASSESSMENT HPI Comments 29-year-old female who came to ER via EMS for abdominal pain. Patient is status post appendectomy, has been complaining of right lower quadrant abdominal pain since yesterday, radiating to her right flank. Associated nausea and vomiting. Denies any urinary symptoms such as dysuria or gross hematuria. Chief Complaint: Abdominal Pain Time Seen by MD: 19:34 Primary Care Provider: UNKNOWN Reviewed Notes: Nurses Notes Allergies: Coded Allergies: Amitriptyline (Verified Allergy, Unknown, 06/08/25) Gabapentin (Verified Allergy, Unknown, 06/08/25) Sumatriptan (Verified Allergy, Unknown, 06/08/25) Home Meds Active Scripts 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) 4 Mg/0.1 Ml Spr, 4 MG NA [employer], #2 SPRAY Prov:SHIRLEY ZHANG MD 06/09/25 Hydrocodone-Acetaminophen (Hydrocodone Bitartrate/AC 5-325 mg) 1 Tab Tab, 1 TAB PO Q8HP PRN, #10 TAB Prov:SHIRLEY ZHANG MD 06/09/25 Reported Medications Cyclobenzaprine Hcl (Cyclobenzaprine Hcl) 10 Mg Tab, 20 MG PO Q8HR for 30 Days, MG 06/08/25 Belimumab (Benlysta) 200 Mg/Ml Inj, 200 MG SC, INJ 06/08/25 Cholecalciferol (Vitamin D) 5,000 Unit Cap, 5000 UNIT PO, CAP 06/08/25 Rimegepant Sulfate (Nurtec) 75 Mg Tab, 75 MG PO, TAB 06/08/25 Lisinopril (Lisinopril) 2.5 Mg Tab, 2.5 MG PO DAILY for 30 Days, MG 06/08/25 Mycophenolate Mofetil (Cellcept) 500 Mg Tab, 1 TAB PO BID, #180 TAB 3 Refills 06/08/25 Hydroxychloroquine Sulfate (Hydroxychloroquine Sulfat) 200 Mg Tab, 200 MG PO for 30 Days, MG 06/08/25 Information Source: Patient Mode of Arrival: EMS Past Medical History PAST MEDICAL HISTORY: CKF, HTN Past Medical History (Other): Lupus Surgical History: Appendectomy, Tubal Ligation Social History Smoker: Non-Smoker Alcohol: Denies ETOH Use Drugs: Denies Drug Use Lives In: Home Constitutional: denies: chills, diaphoresis, fatigue, fever, malaise, sweats, weakness, others EENTM: denies: blurred vision, double vision, ear bleeding, ear discharge, ear drainage, ear pain, ear ringing, eye pain, eye redness, hearing loss, mouth pain, mouth swelling, nasal discharge, nose bleeding, nose congestion, nose pain, photophobia, tearing, throat pain, throat swelling, voice changes, others Respiratory: denies: cough, hemoptysis, orthopnea, SOB at rest, shortness of breath, SOB with excertion, stridor, wheezing, others Cardiovascular: denies: chest pain, dizzy spells, diaphoresis, Dyspnea on exertion, edema, irregular heart beat, left arm pain, lightheadedness, palpitations, PND, syncope, others Gastrointestinal: reports: abdominal pain, nausea, vomiting; denies: abdomen distended, blood streaked bowels, constipated, diarrhea, dysphagia, difficulty swallowing, hematemesis, melena, poor appetite, poor fluid intake, rectal bleeding, rectal pain, others Genitourinary: reports: flank pain; denies: abnormal vagina bleeding, burning, dyspareunia, dysuria, frequency, hematuria, incontinence, pain, , vagina discharge, urgency, others Neurological: denies: dizziness, fainting, headache, left sided numbness, left sided weakness, numbness, paresthesia, pre-existing deficit, right sided numbness, right sided weakness, seizure, speech problems, tingling, tremors, weakness, others Musculoskeletal: denies: back pain, gout, joint pain, joint swelling, muscle pain, muscle stiffness, neck pain, others Integumetry: denies: bruises, change in color, change in hair/nails, dryness, laceration, lesions, lumps, rash, wounds, others Allergic/Immunocompromised: denies: Difficulty Healing, Frequent Infections, Hives, Itching, others Hematologic/Lymphatic: denies: anemia, blood clots, easy bleeding, easy bruising, swollen glands, others Endocrine: denies: excessive hunger, excessive sweating, excessive thirst, excessive urination, flushing, intolerance to cold, intolerance to heat, unexplained weight gain, unexplained weight loss, others Psychiatric: denies: anxiety, bipolar disorder, depression, hopeless, panic disorder, schizophrenia, sleepless, suicidal, others Physical Exam General Appearance: No Apparent Distress, Normal HEENT: Normal ENT Inspection, Pharynx Normal, TMs Normal Neck: Full Range of Motion, Non-Tender, Normal, Normal Inspection Respiratory: Chest Non-Tender, Lungs Clear, No Accessory Muscle Use, No Respiratory Distress, Normal Breath Sounds Cardiovascular: No Edema, No JVD, No Murmur, No Gallop, Normal Peripheral Pulses, Regular Rate/Rhythm Breast Exam: Deferred Gastrointestinal: No Organomegaly, Non Tender, No Pulsatile Mass, Normal Bowel Sounds, Soft Genitalia: Deferred Pelvic: Deferred Rectal: Deferred Extremities: No calf tenderness, Normal capillary refill, Normal inspection, Normal range of motion, Non-tender, No pedal edema Musculoskeletal : Apperance: Normal Neurologic: Alert, pulp drier II-XII nml as Tested, No Motor Deficits, Normal Affect, Normal Mood, No Sensory Deficits Cerebellar Function: Normal Reflexes: Normal Skin: Dry, Normal Color, Warm Lymphatic: No Adenopathy Was a procedure done? Was a procedure done?: No GI differential Dx Differential Diagnosis: Cholecystitis, Constipation, Diverticular disease, Gastritis/PUD, Gastroenteritis, Ovarian cyst/torsion, UTI, Urolithiasis X-Ray, Labs, Meds, VS Vital Signs Date Time Temp Pulse Resp B/P (MAP) Pulse Ox O2 Delivery O2 Flow Rate FiO2 06/24/25 19:01 128 20 134/78 06/24/25 18:51 101.7 06/24/25 18:39 101.0 128 20 134/78 98 101.0 Lab Test 06/24/25 19:29 Range/Units White Blood Count 6.9 4.4-10.8 10^3/uL Red Blood Count 4.69 4.0-5.20 10^6/uL Hemoglobin 13.7 12.2-16.2 g/dL Hematocrit 40.9 36.0-46.0 % Mean Corpuscular Volume 87.3 80.0-100.0 fL Mean Corpuscular Hemoglobin 29.3 28.0-32.0 pg Mean Corpuscular Hemoglobin Concent 33.5 32.0-36.0 g/dL Red Cell Distribution Width 13.6 11.8-14.3 % Platelet Count 207 140-450 10^3/uL Mean Platelet Volume 8.3 6.9-10.8 fL Neutrophils (%) (Auto) 83.4 H 37.0-80.0 % Lymphocytes (%) (Auto) 4.1 L 10.0-50.0 % Monocytes (%) (Auto) 12.2 H 0.0-12.0 % Eosinophils (%) (Auto) 0.1 0.0-7.0 % Basophils (%) (Auto) 0.2 0.0-2.0 % Neutrophils # (Auto) 5.8 1.6-8.6 10 ^3/uL Lymphocytes # (Auto) 0.3 L 0.4-5.4 10 ^3/uL Monocytes # (Auto) 0.8 0-1.3 10 ^3/uL Eosinophils # (Auto) 0 0-0.8 10 ^3/uL Basophils # (Auto) 0 0-0.2 10 ^3/uL Nucleated Red Blood Cells 0.0 % Sodium Level 141 136-145 mmol/L Potassium Level 3.7 3.5-5.1 mmol/L Chloride Level 104 98-107 mmol/L Carbon Dioxide Level 26 20-31 mmol/L Anion Gap 11 5-15 Blood Urea Nitrogen < 5 L 9-23 mg/dL Creatinine 0.70 0.550-1.02 mg/dL Glomerular Filtration Rate Calc 121 >90 mL/min BUN/Creatinine Ratio 7.1 L 10.0-20.0 Serum Glucose 88 74-106 mg/dL Lactic Acid Level 2.5 *H 0.4-2.0 mmol/L Calcium Level 9.1 8.7-10.4 mg/dL Total Bilirubin 0.2 0.2-1.0 mg/dL Aspartate Amino Transferase (AST) 15 13-40 U/L Alanine Aminotransferase (ALT) 20 7-40 U/L Alkaline Phosphatase 62 46-116 U/L Total Protein 6.6 5.7-8.2 g/dL Albumin 4.2 3.2-4.8 g/dL Current Medications Medications (Trade) Dose Ordered Sig/Amira Route Start Time Stop Time Status Last Admin Ondansetron HCl (Zofran) 4 mg ONCE ONCE IV 06/24/25 18:45 06/24/25 18:46 IL 06/24/25 19:01 Morphine Sulfate 4 mg ONCE ONCE IV 06/24/25 18:45 06/24/25 18:46 IL 06/24/25 19:01 Acetaminophen (Tylenol Tablet) 1,000 mg ONCE ONCE PO 06/24/25 18:45 06/24/25 18:46 DC 06/24/25 18:51 Sodium Chloride 1,400 ml @ 1,400 mls/hr ONCE ONCE IV 06/24/25 18:45 06/24/25 19:44 DC 06/24/25 18:59 Time of 1ST Reevaluation: 19:32 Reevaluation 1ST: Unchanged Patient Education/Counseling: Diagnosis, Treatment Family Education/Counseling: No Family Present SEPSIS Sepsis Screen Date sepsis recognized/suspect: Jun 24, 2025 Time Sepsis recognized/suspect: 1837 Recent Procedure: No On Antibiotic Therapy: No Respiratory Rate >20: Yes Heart Rate >90: Yes Temp<36 C (96.8 F) or >38.3 C: Yes SBP <90 or MAP <65 mmHG: No New Acute Mental Status Change: No Is the patient on CPAP, BIPAP,: No Physician Orders Urinalysis (06/24/25 18:35) Ct Ab Pel Wo Con-No Oral Or Iv (06/24/25 18:35) Blood Culture (06/24/25 18:35) Vital Signs Date Time Temp Pulse Resp B/P (MAP) Pulse Ox O2 Delivery O2 Flow Rate FiO2 06/24/25 19:01 128 20 134/78 06/24/25 18:51 101.7 06/24/25 18:39 101.0 128 20 134/78 98 101.0 Laboratory Tests Test 06/24/25 19:29 Lactic Acid Level 2.5 mmol/L (0.4-2.0) *H White Blood Count 6.9 10^3/uL (4.4-10.8) Medications Medications Dose Ordered Sig/Amira Route Start Time Stop Time Status Last Admin Dose Admin Acetaminophen 1,000 mg ONCE ONCE PO 06/24/25 18:45 06/24/25 18:46 DC 06/24/25 18:51 Morphine Sulfate 4 mg ONCE ONCE IV 06/24/25 18:45 06/24/25 18:46 DC 06/24/25 19:01 Ondansetron HCl 4 mg ONCE ONCE IV 06/24/25 18:45 06/24/25 18:46 DC 06/24/25 19:01 Sodium Chloride 1,400 ml @ 1,400 mls/hr ONCE ONCE IV 06/24/25 18:45 06/24/25 19:44 DC 06/24/25 18:59 Departure 1 Departure Time of Disposition: 20:24 Impression: Primary Impression: UTI (urinary tract infection) Additional Impressions: Pyelonephritis History of lupus Disposition: ADMITTED INPATIENT Admit to: Med Surg Condition: Guarded Comments 29 yo female h/o lupus now with fevers and flank pain. Lactic elevated 2.5, febrile , tachycardic. Pt was given IV fluids, tylenoll and IV antibiotics. Patient will need to be admitted for supportive care and further workup Critical Care Note Critical Care Time?: No Stability Stability form required: No Heart Score Heart Score: Heart Score Response (Comments) Value History N/A 0 EKG N/A 0 Age N/A 0 Risk Factors N/A 0 Troponin N/A 0 Total 0 I personally scribed for HANNAH RAMÍREZ MD ([email or web address]) on 06/24/25 at 19:34. Electronically submitted by Lloyd Michelle ([email or web address]). HANNAH RAMÍREZ MD Jun 24, 2025 19:34
[2025-06-24 19:50] LABS: Hematocrit 40.9 % (36.0-46.0); Hemoglobin 13.7 g/dL (12.2-16.2); Mean Corpuscular Hemoglobin 29.3 pg (28.0-32.0); Mean Corpuscular Volume 87.3 fL (80.0-100.0); Nucleated Red Blood Cells % 0.0 %
--- NOTE | 2025-06-24 19:53 | DVH ---
EXAM: CT CT AB PEL WO CON-NO ORAL OR IV HISTORY: right flank pain h/o prior appendectomy Comparison Study: None Exam Date: 06/24/2025 07:03 PM Radiation Dose Information: CT Dose: CTDI volume is 25.57 mGy. Dose-length product is 1329.95 mGy*cm TECHNIQUE: Multidetector CT of the abdomen and pelvis was performed. Imaging was performed without IV contrast. Axial, coronal and sagittal multiplanar reformats were obtained from the axial data set by the technologist. FINDINGS: Lack of intravenous contrast compromises evaluation of perfusion and for isodense lesions. Lower chest: Clear. Liver: Unremarkable Biliary system: Unremarkable Spleen: Unremarkable Pancreas: Unremarkable. Adrenals: Unremarkable. Kidneys and ureters: No hydronephrosis. No renal or ureteral calculi. Bowel: No obstruction. Appendectomy. Bladder: Unremarkable Reproductive organs: No abnormal mass. Lymph nodes: Unremarkable. Peritoneum: Unremarkable Vessels: Patency not evaluated on this noncontrast study. Bones and soft tissue: No aggressive osseous lesion IMPRESSION: No acute CT findings in the abdomen and pelvis.
[2025-06-24 20:09] LABS: Alanine Aminotransferase 20 U/L (7-40); Albumin 4.2 g/dL (3.2-4.8); Alkaline Phosphatase 62 U/L (46-116); Anion Gap 11 (5-15); Calcium 9.1 mg/dL (8.7-10.4); Carbon Dioxide 26 mmol/L (20-31); Chloride 104 mmol/L (98-107); Glucose 88 mg/dL (74-106); Potassium 3.7 mmol/L (3.5-5.1); Sodium 141 mmol/L (136-145); Total Protein 6.6 g/dL (5.7-8.2)
[2025-06-24 20:11] LABS: BUN/Creatinine Ratio 7.1 (10.0-20.0); Bilirubin, Total 0.2 mg/dL (0.2-1.0); Blood Urea Nitrogen < 5 mg/dL (9-23)
[2025-06-24 20:15] LABS: Lactic Acid w/Reflex 2.5 mmol/L (0.4-2.0)
--- NOTE | 2025-06-24 21:55 | DVHHPRES ---
History of Present Illness Resident Creating Document: GLENN ABBASI RESIDENT History of Present Illness Ms Tabitha Pierce, 29-year-old female with past medical history of SLE, paroxysmal AFib not on Eliquis, lupus nephritis, fibromyalgia, ITP, arthritis, sciatica presented to the ER with the complaints of right lower quadrant abd ominal pain, nonradiating, no aggravating or relieving factors associated with nausea, vomiting. Vomiting was not mixed with blood. She had a appendectomy in [address] [facility]. She was diagnosed with left ovarian cyst by [employer]. She is not aware of any thyroid abnormalities. On admission patient was tachycardic and febrile. Temperature was ranging between 101-102 degrees. She has cough with clear sputum production. She reports having AFib in June 08, resolved on its own. Not on any blood thinners or antiarrhythmic medications. She denies any dysuria, gross hematuria, frequency or urgency. She was hospitalized recently due to UTI and chest pain. She reports having constipation for which she takes probiotics. She reports having menstrual irregularities, frequent menstruation, 2 times a month. She does not have any chest pain, shortness of breaths, recent sick contacts or any other complaints. Past medical history: As above Past surgery: Tubal ligation, carpal tunnel surgery Allergies: Gabapentin, sumatriptan, amitriptyline Menstrual history: LMP 13 June, every 15 days Smoking: Never Drugs: Never Alcohol: Once a year, very rarely. Full code Review of Systems Gastrointestinal: Nausea, Vomiting, Abdominal Pain Allergies: Coded Allergies: Amitriptyline (Verified Allergy, Unknown, 06/08/25) Gabapentin (Verified Allergy, Unknown, 06/08/25) Sumatriptan (Verified Allergy, Unknown, 06/08/25) Medications Current Medications Medications Dose Ordered Sig/Amira Route Start Time Stop Time Status Last Admin Dose Admin Ondansetron HCl 4 mg Q4HP PRN IV 06/24/25 21:45 UNV Morphine Sulfate 2 mg Q4HPRN PRN IV 06/24/25 21:45 UNV Ceftriaxone Sodium 50 ml @ 100 mls/hr DAILY@09 IV 06/25/25 09:00 Sodium Chloride 1,000 ml @ 75 mls/hr [id number] IV 06/24/25 21:45 Exam Vital Signs Vital Signs Date Time Temp Pulse Resp B/P (MAP) Pulse Ox O2 Delivery O2 Flow Rate FiO2 06/24/25 19:01 128 20 134/78 06/24/25 18:51 101.7 06/24/25 18:39 98 Exam Pt is lying on bed General Appearance: Alert, Oriented X3, Cooperative, Mild distress HEENT: Atraumatic, Mucous membranes moist/pink Respiratory: Clear to auscultation, Normal air movement, No added sounds Cardiovascular: Regular rate, Normal S1, Normal S2, No murmurs Abdominal/ : Active bowel sounds, Soft, no distention, right lower quadrant and CVA tenderness present Extremities: No edema, Normal pulses, No tenderness/swelling Skin: No Significant rash, except past surgical scars Neuro: Normal speech, sensorimotor deficits none Psych/Mental Status: Mental status NL, Mood NL Nurse was there as air liaison and special staff during examination Labs/Xrays Labs Test 06/24/25 19:29 Range/Units White Blood Count 6.9 4.4-10.8 10^3/uL Red Blood Count 4.69 4.0-5.20 10^6/uL Hemoglobin 13.7 12.2-16.2 g/dL Hematocrit 40.9 36.0-46.0 % Mean Corpuscular Volume 87.3 80.0-100.0 fL Mean Corpuscular Hemoglobin 29.3 28.0-32.0 pg Mean Corpuscular Hemoglobin Concent 33.5 32.0-36.0 g/dL Red Cell Distribution Width 13.6 11.8-14.3 % Platelet Count 207 140-450 10^3/uL Mean Platelet Volume 8.3 6.9-10.8 fL Neutrophils (%) (Auto) 83.4 H 37.0-80.0 % Lymphocytes (%) (Auto) 4.1 L 10.0-50.0 % Monocytes (%) (Auto) 12.2 H 0.0-12.0 % Eosinophils (%) (Auto) 0.1 0.0-7.0 % Basophils (%) (Auto) 0.2 0.0-2.0 % Neutrophils # (Auto) 5.8 1.6-8.6 10 ^3/uL Lymphocytes # (Auto) 0.3 L 0.4-5.4 10 ^3/uL Monocytes # (Auto) 0.8 0-1.3 10 ^3/uL Eosinophils # (Auto) 0 0-0.8 10 ^3/uL Basophils # (Auto) 0 0-0.2 10 ^3/uL Nucleated Red Blood Cells 0.0 % Sodium Level 141 136-145 mmol/L Potassium Level 3.7 3.5-5.1 mmol/L Chloride Level 104 98-107 mmol/L Carbon Dioxide Level 26 20-31 mmol/L Anion Gap 11 5-15 Blood Urea Nitrogen < 5 L 9-23 mg/dL Creatinine 0.70 0.550-1.02 mg/dL Glomerular Filtration Rate Calc 121 >90 mL/min BUN/Creatinine Ratio 7.1 L 10.0-20.0 Serum Glucose 88 74-106 mg/dL Lactic Acid Level 2.5 *H 0.4-2.0 mmol/L Calcium Level 9.1 8.7-10.4 mg/dL Total Bilirubin 0.2 0.2-1.0 mg/dL Aspartate Amino Transferase (AST) 15 13-40 U/L Alanine Aminotransferase (ALT) 20 7-40 U/L Alkaline Phosphatase 62 46-116 U/L Total Protein 6.6 5.7-8.2 g/dL Albumin 4.2 3.2-4.8 g/dL SEPSIS Sepsis Screen Date sepsis recognized/suspect: Jun 24, 2025 Time Sepsis recognized/suspect: 1837 Recent Procedure: No On Antibiotic Therapy: No Respiratory Rate >20: Yes Heart Rate >90: Yes Temp<36 C (96.8 F) or >38.3 C: Yes SBP <90 or MAP <65 mmHG: No New Acute Mental Status Change: No Is the patient on CPAP, BIPAP,: No Physician Orders Urinalysis (06/24/25 18:35) Ct Ab Pel Wo Con-No Oral Or Iv (06/24/25 18:35) Blood Culture (06/24/25 18:35) Allergies (06/24/25 21:33) Code Status (06/24/25 21:33) Oxygen Per Hour (06/24/25 21:33) Ondansetron Hcl (Zofran) (06/24/25 21:45) Complete Blood Count (06/25/25 04:00) Comprehensive Metabolic Panel (06/25/25 04:00) Morphine Sulfate Injection (06/24/25 21:45) Sequential Compression Device (06/24/25 ) Admit (06/24/25 21:33) Oxygen By Nasal Cannula (06/24/25 21:33) Stat Ekg For Chest Pain (06/24/25 21:33) Notify Md Of Changes From Base (06/24/25 21:33) Medication Administration Professional For 24 Hours (06/24/25 21:33) Emergency Dysrhythmia Protocol (06/24/25 21:33) Rhythm Strips Once Every Shift (06/24/25 21:33) Npo (Nothing By Mouth) Diet (06/25/25 Breakfast) Urinalysis (06/24/25 21:41) Drug Screen (06/24/25 21:41) Ceftriaxone 1gm/50ml (Rocephin) (06/25/25 09:00) Pelvic (06/24/25 21:43) Sodium Chloride 0.9% (06/24/25 21:45) Lipase (06/24/25 21:53) Vital Signs Date Time Temp Pulse Resp B/P (MAP) Pulse Ox O2 Delivery O2 Flow Rate FiO2 06/24/25 19:01 128 20 134/78 06/24/25 18:51 101.7 06/24/25 18:39 101.0 128 20 134/78 98 101.0 Laboratory Tests Test 06/24/25 19:29 Lactic Acid Level 2.5 mmol/L (0.4-2.0) *H White Blood Count 6.9 10^3/uL (4.4-10.8) Medications Medications Dose Ordered Sig/Amira Route Start Time Stop Time Status Last Admin Dose Admin Acetaminophen 1,000 mg ONCE ONCE PO 06/24/25 18:45 06/24/25 18:46 DC 06/24/25 18:51 1,000 MG Morphine Sulfate 4 mg ONCE ONCE IV 06/24/25 18:45 06/24/25 18:46 DC 06/24/25 19:01 4 MG Ondansetron HCl 4 mg ONCE ONCE IV 06/24/25 18:45 06/24/25 18:46 DC 06/24/25 19:01 4 MG Sodium Chloride 1,400 ml @ 1,400 mls/hr ONCE ONCE IV 06/24/25 18:45 06/24/25 19:44 DC 06/24/25 18:59 1,400 MLS/HR Assessment/Plan Assessment/Plan Acute right lower quadrant intractable pain Sinus tachycardia Febrile -abdomen pelvis CT: No acute finding -chest x-ray: No acute disease -pelvic ultrasound: No acute findings, one 1.8 cm left ovarian cyst, cervical nabothian cyst, 1.8 cm left ovarian cyst. -IV fluid -optimize pain management with morphine, ketorolac -IV ceftriaxone -Urinalysis: no wbc or nitrites History of paroxysmal AFib, not on Eliquis or antiarrhythmic EKG ordered, pending results SLE, possible flare up Lupus nephritis -C3, C4, CRP, ESR -anti dsDNA, antinuclear antibody ordered -renal function tests within normal limits GI prophylaxis: Pantoprazole DVT prophylaxis: Lovenox Diet: Renal Goals of care discussed with the patient for more than 27 minutes: Full code status Case discussed with Dr. Wing , patient and RN Plan discussed with: Patient, Other My Orders Orders - AYLEEN,GLENN RESIDENT Procedure Category Date Status Time Allergies CASA 06/24/25 In Process 21:33 Code Status CODE 06/24/25 Transmitted 21:33 Oxygen Per Hour RT 06/24/25 Transmitted 21:33 Ondansetron Hcl PHA 06/24/25 In Process (Zofran) 21:45 Complete Blood Count LAB 06/25/25 Verified 04:00 Comprehensive LAB 06/25/25 Verified Metabolic Panel 04:00 Morphine Sulfate PHA 06/24/25 Logged Injection 21:45 Sequential CASA 06/24/25 In Process Compression Device Admit ADMIT 06/24/25 Transmitted 21:33 Oxygen By Nasal RT 06/24/25 Transmitted Cannula 21:33 Stat Ekg For Chest CASA 06/24/25 In Process Pain 21:33 Notify Of Changes [facility] 06/24/25 In Process From Base 21:33 Medication Administration Professional For [facility] 06/24/25 In Process 24 Hours 21:33 Emergency Dysrhythmia CASA 06/24/25 In Process Protocol 21:33 Rhythm Strips Once [facility] 06/24/25 In Process Every Shift 21:33 Npo (Nothing By DIET 06/25/25 Transmitted Mouth) Diet Breakfast Urinalysis LAB 06/24/25 Logged 21:41 Drug Screen LAB 06/24/25 Logged 21:41 Ceftriaxone 1gm/50ml PHA 06/25/25 In Process (Rocephin) 09:00 Pelvic US 06/24/25 Logged 21:43 Sodium Chloride 0.9% PHA 06/24/25 In Process 21:45 Lipase LAB 06/24/25 Transmitted 21:53 Visit Coding STANDARD RES Billing Provider: ABI WING MD Date of Service if different f: Jun 25, 2025 GLENN ABBASI RESIDENT Jun 24, 2025 21:55
--- NOTE | 2025-06-24 22:21 | DVH ---
US PELVIC Indication: 29 years old, Female; Check for cyst rupture or abscess. Comparison: None TECHNIQUE: Ultrasound examination of the female pelvis was performed transabdominally and transvaginally. Color and pulsed wave Doppler imaging was also utilized to evaluate ovarian blood flow. FINDINGS: Uterus: 9.4 cm Endometrium: 2 mm Cervical nabothian cyst. Right ovary: 3.2 cm Left ovary: 2.5 cm Doppler Color Flow: Preserved arterial waveforms. 1.8 cm left ovarian cyst/follicle. IMPRESSION: NO ACUTE SONOGRAPHIC FINDINGS IN THE PELVIS.
[2025-06-24 22:44] LABS: Urine Protein, UAD TRACE (Negative)
[2025-06-24 22:56] LABS: Phencyclidine Screen, Urine Neg (NEGATIVE)
[2025-06-24 23:01] LABS: Amphetamine Screen, Urine Neg (NEGATIVE); Barbiturate Scree,Urine Neg (NEGATIVE); Benzodiazephine Screen, Urine Neg (NEGATIVE); Cannabinoid Screen, Urine Neg (NEGATIVE); Cocaine Screen, Urine Neg (NEGATIVE); Opiate Scree,Urine Pos (NEGATIVE)
[2025-06-24] MEDS: IBUPROFEN 600 MG TAB PO ONE (23:25)
[2025-06-25] VITALS (9 sets, daily range): BP systolic 92–115; BP diastolic 41–68; PULSE 66–105; RESP 16–20; TEMP 97.8–100.5; O2SAT 97–100
[2025-06-25] MEDS: PANTOPRAZOLE 40 MG/10 ML VIAL INJ IV ONE (00:01)
[2025-06-25] MEDS: KETOROLAC TROMETH 30 MG/ML 1ML VIAL IV ONE (00:02)
[2025-06-25] MEDS: SODIUM CHLORIDE 0.9% 1,000 ML IV SCH (00:03)
[2025-06-25 00:15] LABS: Protein, Urine 29.4 mg/dL (1-14)
[2025-06-25] MEDS: ACETAMINOPHEN IV 1000 MG/100ML (10MG/ML) IV ONE (00:56)
--- NOTE | 2025-06-25 01:27 | DVH ---
CHEST RADIOGRAPH INDICATION: r/o pna TECHNIQUE: Single frontal view of the chest was obtained COMPARISON: XY CHEST TWO VIEWS ROUTINE on DOS: 06/08/25 FINDINGS: Lines and Tubes: None Lungs: Clear Pleura: No effusion. No pneumothorax. Cardiomediastinal contours: Unremarkable Bones: Unremarkable IMPRESSION: 1. No acute disease.
[2025-06-25 06:49] LABS: Hematocrit 41.0 % (36.0-46.0); Hemoglobin 13.5 g/dL (12.2-16.2); Mean Corpuscular Hemoglobin 29.2 pg (28.0-32.0); Mean Corpuscular Volume 88.5 fL (80.0-100.0); Nucleated Red Blood Cells % 0.1 %
[2025-06-25 07:14] LABS: Alanine Aminotransferase 19 U/L (7-40); Albumin 4.3 g/dL (3.2-4.8); Alkaline Phosphatase 60 U/L (46-116); Anion Gap 10 (5-15); Calcium 8.9 mg/dL (8.7-10.4); Carbon Dioxide 27 mmol/L (20-31); Chloride 106 mmol/L (98-107); Sodium 143 mmol/L (136-145); Total Protein 6.6 g/dL (5.7-8.2)
[2025-06-25 07:16] LABS: BUN/Creatinine Ratio 6.9 (10.0-20.0); Bilirubin, Total 0.3 mg/dL (0.2-1.0); Blood Urea Nitrogen < 5 mg/dL (9-23); Glucose 72 mg/dL (74-106); Potassium 3.5 mmol/L (3.5-5.1)
[2025-06-25] MEDS: PANTOPRAZOLE 40 MG/10 ML VIAL INJ IV SCH (08:46)
[2025-06-25] MEDS: MORPHINE SULFATE 4 MG/ML SYR/VIAL IV PRN (08:46)
[2025-06-25] MEDS: HYDROmorphone HCL 2 MG/ML VL/or syr IV PRN (12:41)
[2025-06-25] MEDS: CYCLOBENZAPRINE HCL 10 MG TAB PO SCH (14:41)
[2025-06-25] MEDS: ACETAMINOPHEN 325 MG TAB PO SCH (14:41)
[2025-06-25] MEDS: ONDANSETRON HCL 4 MG/2 ML VIAL IV PRN (14:41)
--- NOTE | 2025-06-25 15:18 | DVHPNRES ---
Progress Note Date Seen: Jun 25, 2025 Resident Creating Document: CRISTOBAL SYLVESTER RESIDENT Medical Necessity Reason Pt with a Central, PICC or Fol: No Subjective Review of Systems Tabitha Pierce This is a 23-year-old female with past medical history of SLE, lupus nephritis, chronic UTI, osteoarthritis of the hip, sciatica, immune thrombocytic purpura , AFib presented to the hospital with complaints of fever, abdominal pain, vomiting since . She also complains of associated dysuria and cloudy urine. Patient denies any diarrhea, shortness of breath or focal weakness. She describes the abdominal pain 8 on 10, sharp, radiating to the back. Patient reports that she is not able to tolerate solid food. she reports that she was recently started on monoclonal antibody, Got 1 dose. She also reports that she was recently admitted to the hospital for UTI. PMHx: SLE, lupus nephritis, chronic UTI, osteoarthritis of the hip, sciatica, immune thrombocytic purpura , AFib PSHx: nonrelevant Family history: history of bone and uterine cancer in grandmother Social history: denies smoking, alcohol, drug use. Lives with family Home medication: hydroxychloroquine, lisinopril, vitamin-D Allergic history: amitriptyline, gabapentin, sumatriptan General: patient denies fatigue, weaknes, sweating, any recent changes in appetite and weight . complains of fever HEENT: No headaches, visiual changes, hearing loss, tinnitus, nasal congestion and discharge, and sore throat. Cardiovascular: Denies chest pain, palpitations, dyspnea on exertion, orthopnea, or claudication. Respiratory: No cough, and wheezing. Gastrointestinal: sulfa abdominal pain, vomiting Genitourinary: No dysuria, hematuria, discharge, frequency, urgency, nocturia, incontinence, and urinary retention. Endocrine: No heat or cold intolerance, polydipsia, polyuria, and polyphagia. Neurological: No dizziness, extremity weakness and numbness, tremors, gait disturbance, seizures, and memory impairment. Psychiatric: Denies depression, anxiety,or insomnia. Musculoskeletal: Denies neck pain, stiffness and swelling, back pain, muscle weakness, joint pain, stiffness, swelling, or limited range of motion. Skin: No rashes, itching, skin lesion, changes in hair, nail, skin texture and breast. Hematologic/Lymphatic: Denies easy bruising, bleeding tendencies, or lymph node enlargement. Objective vital signs Vital Sign Date Time Temp Pulse Resp B/P (MAP) Pulse Ox O2 Delivery O2 Flow Rate FiO2 06/25/25 13:11 88 18 110/88 06/25/25 13:01 98.6 97 98.6 06/24/25 23:53 Room Air* 0 21 Total Intake and Output 06/24/25 06/24/25 06/25/25 15:00 23:00 07:00 Intake Total 0 ml Balance 0 ml medications Current Medications Medications Dose Ordered Sig/Amira Route Start Time Stop Time Status Last Admin Dose Admin Ondansetron HCl 4 mg Q4HP PRN IV 06/24/25 21:45 06/25/25 14:41 4 MG Morphine Sulfate 2 mg Q4HPRN PRN IV 06/24/25 21:45 Hold 06/25/25 08:46 2 MG Ceftriaxone Sodium 50 ml @ 100 mls/hr DAILY@09 IV 06/25/25 09:00 06/25/25 08:46 100 MLS/HR Sodium Chloride 1,000 ml @ 75 mls/hr [id number] IV 06/24/25 21:45 06/25/25 00:03 75 MLS/HR Pantoprazole Sodium 40 mg DAILY IV 06/25/25 10:00 06/25/25 08:46 40 MG Hydromorphone HCl 0.5 mg Q2HPRN PRN IV 06/25/25 12:15 06/25/25 12:41 0.5 MG Acetaminophen 650 mg Q6HR PO 06/25/25 13:45 06/25/25 14:41 650 MG Acetaminophen/ Hydrocodone Bitart 1 tab Q6HP PRN PO 06/25/25 19:30 Cyclobenzaprine HCl 20 mg Q8HR PO 06/25/25 14:00 06/25/25 14:41 20 MG Hydroxychloroquine Sulfate 200 mg DAILY PO 06/25/25 13:45 06/25/25 14:42 200 MG Mycophenolate Mofetil 500 mg BID PO 06/25/25 22:00 Examination General Appearance: Alert, Oriented X3, Cooperative, No acute distress HEENT: Atraumatic, PERRLA, EOMI, Mucous membrane moist/pink Respiratory: Clear to auscultation, Normal air movement Cardiovascular: Regular rate, Normal S1, Normal S2, No murmurs, no chest wall tenderness Abdominal: tenderness in the right lower quadrant, abdomen soft, no rigidity or rebound tenderness Extremities: No clubbing, No cyanosis, No edema, Normal pulses, No tenderness/swelling Skin: No rashes, No breakdown, No significant lesion Neuro: Normal gait, Normal speech, Strength at 5/5 X4 ext, Normal tone, Sensation intact, Cranial nerves 3-12 NL, Reflexes 2+ Psych/Mental Status: Mental status NL, Mood NL laboratory and microbiology Laboratory Tests 06/25/25 05:50 Test 06/25/25 05:50 Range/Units Serum Glucose 72 L 74-106 mg/dL Problem List/Assessment/Plan Problem List/Assessment/Plan Assessment/Plan possible GI bleed acute gastroenteritis Sinus tachycardia stool occult blood ordered GI consult abdomen pelvis CT: No acute finding chest x-ray: No acute disease pelvic ultrasound: No acute findings, one 1.8 cm left ovarian cyst, cervical nabothian cyst, 1.8 cm left ovarian cyst. IV fluid optimize pain management with morphine, ketorolac IV ceftriaxone Urinalysis: no wbc or nitrites lipase within normal limits History of paroxysmal AFib, not on Eliquis or antiarrhythmic EKG- sinus tachycardia SLE, possible flare up Lupus nephritis immune thrombocytic purpura C3, C4, CRP, ESR anti dsDNA, antinuclear antibody ordered renal function tests within normal limits elevated urine creatinine follow platelet levels possible hyperthyroidism TSH 0.43 Free T3 and T4 ordered Follow thyroid function test possible acute UTI UA normal Repeat UA and urine culture ordered History of sciatica Follow up with PCP on discharge History of osteoarthritis of the hip Follow up with PCP on discharge GI prophylaxis: Pantoprazole DVT prophylaxis: Lovenox Diet:Clear iquid Goals of care : Full code status Case discussed with Plan discussed with: Patient, Spouse My Orders My Orders Orders - CRISTOBAL SYLVESTER RESIDENT Procedure Category Date Status Time Acetaminophen Tablet PHA 06/25/25 In Process (Tylenol Tablet) 13:45 Hydrocodone-Acet PHA 06/25/25 In Process 10/325mg Tab ([place] 19:30 Stool Occult Blood LAB 06/25/25 Uncollected 13:37 * [facility] [address] [address] Supervisor CONS 06/25/25 Transmitted 13:37 Clear Liq Diet DIET 06/25/25 Transmitted Dinner Cyclobenzaprine PHA 06/25/25 In Process Tablet (Flexeril 14:00 Hydroxychloroquine PHA 06/25/25 In Process Tablet (Plaquenil Tab 13:45 Mycophenolate Mofetil PHA 06/25/25 In Process (Cellcept) 22:00 Electrocardigram EKG 06/25/25 Logged 13:57 Complete Blood Count LAB 06/26/25 Verified 04:00 Comprehensive LAB 06/26/25 Verified Metabolic Panel 04:00 Urinalysis LAB 06/25/25 Uncollected 15:00 Urine Bacterial RAHUL 06/25/25 Uncollected Culture 15:00 Free T3 LAB 06/26/25 Verified 04:00 Free T4 (Free LAB 06/26/25 Verified Thyroxine) 04:00 Date of Service: Jun 25, 2025 Billing Provider: GARRICK DONNELLY DO Common Visit Codes: [id number] INP/OBS CARE(HIGH) CRISTOBAL SYLVESTER RESIDENT Jun 25, 2025 15:18 GARRICK DONNELLY DO Jun 26, 2025 21:18
[2025-06-25 18:44] LABS: Urine Protein, UAD Negative (Negative)
[2025-06-25] MEDS: MYCOPHENOLATE 500 MG TAB PO SCH (21:15)
[2025-06-26 01:00] VITALS: BP 84/56; PULSE 73; RESP 17; TEMP 97; O2SAT 95
[2025-06-26 05:00] VITALS: BP 117/78; PULSE 86; RESP 17; TEMP 97.2; O2SAT 94
[2025-06-26 08:00] VITALS: PULSE 88; RESP 16; O2SAT 98
[2025-06-26 08:56] LABS: Hematocrit 34.8 % (36.0-46.0); Hemoglobin 11.7 g/dL (12.2-16.2); Mean Corpuscular Hemoglobin 29.9 pg (28.0-32.0); Mean Corpuscular Volume 88.5 fL (80.0-100.0); Nucleated Red Blood Cells % 0.2 %
[2025-06-26 09:06] LABS: Alanine Aminotransferase 16 U/L (7-40); Albumin 3.4 g/dL (3.2-4.8); Alkaline Phosphatase 46 U/L (46-116); Anion Gap 8 (5-15); Carbon Dioxide 26 mmol/L (20-31); Chloride 107 mmol/L (98-107); Potassium 3.9 mmol/L (3.5-5.1); Sodium 141 mmol/L (136-145)
[2025-06-26 09:12] LABS: BUN/Creatinine Ratio 8.2 (10.0-20.0); Bilirubin, Total 0.2 mg/dL (0.2-1.0); Blood Urea Nitrogen < 5 mg/dL (9-23); Calcium 8.5 mg/dL (8.7-10.4); Glucose 69 mg/dL (74-106); Total Protein 5.4 g/dL (5.7-8.2)
--- NOTE | 2025-06-26 09:41 | ECG ---
[facility] Test Date: 2025-06-25 Test Time: 14:10:27 Pat Name: BRYNN AVILES Department: Room: 0297 A Gender: F Senior Technical Specialist: MR CABALLERO: 1995 Requested By: CRISTOBAL SYLVESTER Order Number: [id number] Reading MD: Miguel Anne Measurements Intervals [place] Rate: 87 P: 20 MD: 118 QRS: 25 QRSD: 82 T: 25 QT: 336 QTc: 404 Interpretive Statements Sinus rhythm Borderline short MD interval RSR' in V1 or V2, probably normal variant Borderline ST elevation, anterior leads Electronically Signed On 06-30-2025 8:17:05 PST by Miguel Anne Please click the below link to view image of tracing.
[2025-06-26 20:00] VITALS: RESP 17; O2SAT 98
--- NOTE | 2025-06-26 20:22 | DVHINCON2 ---
Date of service: Jun 26, [address] Caro Reason for Consultation Blood in stool History of Present Illness Ms Tabitha Pierce, 29-year-old female with past medical history of SLE, paroxysmal AFib not on Eliquis, lupus nephritis, fibromyalgia, ITP, arthritis, sciatica presented to the ER with the complaints of right lower quadrant abdominal pain, nonradiating, no aggravating or relieving factors associated with nausea, vomiting. Vomiting was not mixed with blood. She had a appendectomy in 2016 at [facility]. She was diagnosed with left ovarian cyst by [facility]. She is not aware of any thyroid abnormalities. On admission patient was tachycardic and febrile. Temperature was ranging between 101-102 degrees. She has cough with clear sputum production. She reports having AFib in June 08, resolved on its own. Not on any blood thinners or antiarrhythmic medications. She denies any dysuria, gross hematuria, frequency or urgency. She was hospitalized recently due to UTI and chest pain. She reports having constipation for which she takes probiotics. She reports having menstrual irregularities, frequent menstruation, 2 times a month. She does not have any chest pain, shortness of breaths, recent sick contacts or any other complaints. She also complains of associated dysuria and cloudy urine. Patient denies any diarrhea, shortness of breath or focal weakness. She describes the abdominal pain 8 on 10, sharp, radiating to the back. Patient reports that she is not able to tolerate solid food. she reports that she was recently started on monoclonal antibody, Got 1 dose. Past Medical History f SLE, paroxysmal AFib not on Eliquis, lupus nephritis, fibromyalgia, ITP, arthritis, sciatica Past Surgical History Past surgery: Tubal ligation, carpal tunnel surgery Family History: Bone cancer G8 FATHER Cardiovascular disease G8 FATHER Diabetes mellitus G8 MOTHER FH: cancer G8 MOTHER FH: leukemia G8 FATHER Hypercholesterolemia G8 FATHER Hypertension G8 FATHER Allergies: Coded Allergies: Amitriptyline (Verified Allergy, Unknown, 06/08/25) Gabapentin (Verified Allergy, Unknown, 06/08/25) Sumatriptan (Verified Allergy, Unknown, 06/08/25) Home Meds Active Scripts 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) 4 Mg/0.1 Ml Spr, 4 MG NA 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, #2 SPRAY Prov:SHIRLEY ZHANG MD 06/09/25 Hydrocodone-Acetaminophen (Hydrocodone Bitartrate/AC 5-325 mg) 1 Tab Tab, 1 TAB PO Q8HP PRN, #10 TAB Prov:SHIRLEY ZHANG MD 06/09/25 Reported Medications Cyclobenzaprine Hcl (Cyclobenzaprine Hcl) 10 Mg Tab, 20 MG PO Q8HR for 30 Days, MG 06/08/25 Belimumab (Benlysta) 200 Mg/Ml Inj, 200 MG SC, INJ 06/08/25 Cholecalciferol (Vitamin D) 5,000 Unit Cap, 5000 UNIT PO, CAP 06/08/25 Rimegepant Sulfate (Nurtec) 75 Mg Tab, 75 MG PO, TAB 06/08/25 Lisinopril (Lisinopril) 2.5 Mg Tab, 2.5 MG PO DAILY for 30 Days, MG 06/08/25 Mycophenolate Mofetil (Cellcept) 500 Mg Tab, 1 TAB PO BID, #180 TAB 3 Refills 06/08/25 Hydroxychloroquine Sulfate (Hydroxychloroquine Sulfat) 200 Mg Tab, 200 MG PO for 30 Days, MG 06/08/25 Current Medications Current Medications Medications (Trade) Dose Ordered Sig/Amira Route PRN Reason Start Time Stop Time Status Last Admin Mycophenolate Mofetil (Cellcept) 500 mg BID PO 06/25/25 22:00 06/26/25 09:07 Vital Signs Vital Signs Date Time Temp Pulse Resp B/P (MAP) Pulse Ox O2 Delivery O2 Flow Rate FiO2 06/26/25 14:16 81 19 112/69 06/26/25 08:00 98 Room Air* 0 21 06/26/25 05:00 97.2 97.2 Physical Exam General Appearance: Alert, Oriented X3, Cooperative, No acute distress HEENT: Atraumatic, PERRLA, EOMI, Mucous membrane moist/pink Respiratory: Clear to auscultation, Normal air movement Cardiovascular: Regular rate, Normal S1, Normal S2, No murmurs, no chest wall tenderness Abdominal: tenderness in the right lower quadrant, abdomen soft, no rigidity or rebound tenderness Extremities: No clubbing, No cyanosis, No edema, Normal pulses, No tenderness/swelling Skin: No rashes, No breakdown, No significant lesion Neuro: Normal gait, Normal speech, Strength at 5/5 X4 ext, Normal tone, Sensation intact, Cranial nerves 3-12 NL, Reflexes 2+ Psych/Mental Status: Mental status NL, Mood NL Labs/Diagnostic Data Labs Test 06/26/25 08:16 06/25/25 17:30 06/25/25 05:50 06/24/25 22:30 Range/Units White Blood Count 3.0 L 4.4-10.8 10^3/uL Red Blood Count 3.93 L 4.0-5.20 10^6/uL Hemoglobin 11.7 L 12.2-16.2 g/dL Hematocrit 34.8 #L 36.0-46.0 % Mean Corpuscular Volume 88.5 80.0-100.0 fL Mean Corpuscular Hemoglobin 29.9 28.0-32.0 pg Mean Corpuscular Hemoglobin Concent 33.7 32.0-36.0 g/dL Red Cell Distribution Width 13.5 11.8-14.3 % Platelet Count 178 140-450 10^3/uL Mean Platelet Volume 7.9 6.9-10.8 fL Neutrophils (%) (Auto) 41.3 37.0-80.0 % Lymphocytes (%) (Auto) 45.4 10.0-50.0 % Monocytes (%) (Auto) 12.3 H 0.0-12.0 % Eosinophils (%) (Auto) 0.3 0.0-7.0 % Basophils (%) (Auto) 0.7 0.0-2.0 % Neutrophils # (Auto) 1.2 L 1.6-8.6 10 ^3/uL Lymphocytes # (Auto) 1.4 0.4-5.4 10 ^3/uL Monocytes # (Auto) 0.4 0-1.3 10 ^3/uL Eosinophils # (Auto) 0 0-0.8 10 ^3/uL Basophils # (Auto) 0 0-0.2 10 ^3/uL Nucleated Red Blood Cells 0.2 % Sodium Level 141 136-145 mmol/L Potassium Level 3.9 3.5-5.1 mmol/L Chloride Level 107 98-107 mmol/L Carbon Dioxide Level 26 20-31 mmol/L Anion Gap 8 5-15 Blood Urea Nitrogen < 5 L 9-23 mg/dL Creatinine 0.61 0.550-1.02 mg/dL Glomerular Filtration Rate Calc 125 >90 mL/min BUN/Creatinine Ratio 8.2 L 10.0-20.0 Serum Glucose 69 L 74-106 mg/dL Calcium Level 8.5 L 8.7-10.4 mg/dL Total Bilirubin 0.2 0.2-1.0 mg/dL Aspartate Amino Transferase (AST) 21 13-40 U/L Alanine Aminotransferase (ALT) 16 7-40 U/L Alkaline Phosphatase 46 46-116 U/L Total Protein 5.4 L 5.7-8.2 g/dL Albumin 3.4 3.2-4.8 g/dL Urine Color Light-yellow Yellow Urine Clarity Clear Clear Urine pH 6.5 5.0-9.0 Urine Specific [place] 1.022 1.001-1.035 Urine Protein Negative Negative Urine Ketones 3+ H Negative Urine Blood Negative Negative /uL Urine Nitrite Negative Negative Urine Bilirubin Negative Negative Urine Urobilinogen Normal Negative mg/dL Urine Leukocyte Esterase 1+ Negative /uL Urine RBC <1 0 - 4 /hpf Urine Microscopic WBC 11 H 0-5 /HPF Urine Squamous Epithelial Cells Few <5 /hpf Urine Bacteria None seen None Seen /hpf Urine Mucus Few None Seen Urine Glucose Normal Normal mg/dL Thyroid Stimulating Hormone (TSH) 0.43 L 0.55-4.78 uIU/mL Complement C3 150 82-167 mg/dL Complement C4 28 12-38 mg/dL Urine Creatinine 160.79 H 30.0-125.0 mg/dL Urine Protein/Creatinine Ratio 0.18 Urine Total Protein 29.4 H 1-14 mg/dL Urine Opiates Screen Pos NEGATIVE Urine Fentanyl Screen Pos NEGATIVE Urine Barbiturates Screen Neg NEGATIVE Urine Phencyclidine Screen Neg NEGATIVE Urine Amphetamines Screen Neg NEGATIVE Urine Benzodiazepines Screen Neg NEGATIVE Urine Cocaine Screen Neg NEGATIVE Urine Cannabinoids Screen Neg NEGATIVE Test 06/24/25 21:37 06/24/25 19:29 Range/Units Lactic Acid Level 1.3 0.4-2.0 mmol/L Erythrocyte Sedimentation Rate 7 0-20 mm/hr C-Reactive Protein High Sensitivity 3.92 H <1.0 mg/dL Lipase 24 12-53 U/L Microbiology Date/Time Source Procedure Growth Status 06/24/25 22:30 Voided Urine Urine Culture - Preliminary Resulted 06/24/25 19:36 Blood Blood Culture - Preliminary NO GROWTH AFTER 48 [address]RS OF IN[address]ATION. Resulted CT SCAN ABD PELVIS and pelvic ultrasound negative Problems(with codes): (1) UTI (urinary tract infection) (2) History of lupus (3) Pyelonephritis (4) Right lower quadrant abdominal pain Plan/Recommendation A/P acute gastroenteritis Sinus tachycardia stool occult blood ordered abdomen pelvis CT: No acute finding chest x-ray: No acute disease pelvic ultrasound: No acute findings, one 1.8 cm left ovarian cyst, cervical nabothian cyst, 1.8 cm left ovarian cyst. IV fluid optimize pain management with morphine, ketorolac IV ceftriaxone Urinalysis: no wbc or nitrites lipase within normal limits Continue supportive care IV ppi, diet as tolerated Plan discussed with: Patient JCAE SARABIA MD Jun 26, 2025 20:22
[2025-06-26 21:00] VITALS: BP 103/54; PULSE 84; RESP 17; TEMP 98; O2SAT 95
--- NOTE | 2025-06-26 21:20 | DVHPN2 ---
Reviewed: Care Plan, H&P, Labs, Medications, Previous Orders Changes from previous H/P or p: No Changes General: Per HPI Gastrointestinal: Nausea, Vomiting, Abdominal Pain Objective Vitals Vital Signs Date Time Temp Pulse Resp B/P (MAP) Pulse Ox O2 Delivery O2 Flow Rate FiO2 06/26/25 20:30 79 19 111/72 06/26/25 08:00 98 Room Air* 0 21 06/26/25 05:00 97.2 97.2 Intake/Output Intake and Output 06/26/25 07:00 Intake Total 890 ml Balance 890 ml Intake Oral 240 ml IV Total 650 ml # Voids 4 General Appearance: Alert, Oriented X3, Cooperative Cardiovascular: Regular rate, Normal S1, Normal S2 Neuro: Normal gait Medications Current Medications Medications Dose Ordered Sig/Amira Route Start Time Stop Time Status Last Admin Dose Admin Ondansetron HCl 4 mg Q4HP PRN IV 06/24/25 21:45 06/26/25 18:36 4 MG Morphine Sulfate 2 mg Q4HPRN PRN IV 06/24/25 21:45 Hold 06/25/25 08:46 2 MG Ceftriaxone Sodium 50 ml @ 100 mls/hr DAILY@09 IV 06/25/25 09:00 06/26/25 09:07 100 MLS/HR Sodium Chloride 1,000 ml @ 75 mls/hr [id number] IV 06/24/25 21:45 06/26/25 06:48 75 MLS/HR Pantoprazole Sodium 40 mg DAILY IV 06/25/25 10:00 06/26/25 09:07 40 MG Hydromorphone HCl 0.5 mg Q2HPRN PRN IV 06/25/25 12:15 06/26/25 20:30 0.5 MG Acetaminophen 650 mg Q6HR PO 06/25/25 13:45 06/26/25 17:54 650 MG Acetaminophen/ Hydrocodone Bitart 1 tab Q6HP PRN PO 06/25/25 19:30 Cyclobenzaprine HCl 20 mg Q8HR PO 06/25/25 14:00 06/26/25 13:19 20 MG Hydroxychloroquine Sulfate 200 mg DAILY PO 06/25/25 13:45 06/26/25 09:07 200 MG Mycophenolate Mofetil 500 mg BID PO 06/25/25 22:00 06/26/25 09:07 500 MG Laboratory Results Laboratory Tests 06/26/25 08:16 Chemistry Test 06/26/25 08:16 Albumin 3.4 g/dL (3.2-4.8) Calcium Level 8.5 mg/dL (8.7-10.4) L Total Protein 5.4 g/dL (5.7-8.2) L LFT Test 06/26/25 08:16 Alanine Aminotransferase (ALT) 16 U/L (7-40) Alkaline Phosphatase 46 U/L (46-116) Aspartate Amino Transferase (AST) 21 U/L (13-40) Total Bilirubin 0.2 mg/dL (0.2-1.0) Urinalysis Test 06/24/25 22:30 06/25/25 17:30 Urine Creatinine 160.79 mg/dL (30.0-125.0) H Urine Protein/Creatinine Ratio 0.18 Urine Total Protein 29.4 mg/dL (1-14) H Urine Color Light-yellow (Yellow) Urine Clarity Clear (Clear) Urine pH 6.5 (5.0-9.0) Urine Specific [place] 1.022 (1.001-1.035) Urine Protein Negative (Negative) Urine Ketones 3+ (Negative) H Urine Blood Negative /uL (Negative) Urine Nitrite Negative (Negative) Urine Bilirubin Negative (Negative) Urine Urobilinogen Normal mg/dL (Negative) Urine Leukocyte Esterase 1+ /uL (Negative) Urine RBC <1 /hpf (0 - 4) Urine Microscopic WBC 11 /HPF (0-5) H Urine Squamous Epithelial Cells Few /hpf (<5) Urine Bacteria None seen /hpf (None Seen) Urine Mucus Few (None Seen) Urine Glucose Normal mg/dL (Normal) Microbiology Microbiology Date/Time Source Procedure Growth Status 06/24/25 22:30 Voided Urine Urine Culture - Preliminary Resulted 06/24/25 19:36 Blood Blood Culture - Preliminary NO GROWTH AFTER 48 HOURS OF INCUBATION. Resulted Labs and/or images reviewed: Labs reviewed by me, Image(s) reviewed by me Assessment/Plan Assessment/Plan possible GI bleed acute gastroenteritis Sinus tachycardia stool occult blood ordered GI consult abdomen pelvis CT: No acute finding chest x-ray: No acute disease pelvic ultrasound: No acute findings, one 1.8 cm left ovarian cyst, cervical nabothian cyst, 1.8 cm left ovarian cyst. IV fluid optimize pain management with morphine, ketorolac IV ceftriaxone Urinalysis: no wbc or nitrites lipase within normal limits advance diet possible discharge in 24 hours History of paroxysmal AFib, not on Eliquis or antiarrhythmic EKG- sinus tachycardia SLE, possible flare up Lupus nephritis immune thrombocytic purpura C3, C4, CRP, ESR anti dsDNA, antinuclear antibody ordered renal function tests within normal limits elevated urine creatinine follow platelet levels possible hyperthyroidism TSH 0.43 Free T3 and T4 ordered Follow thyroid function test possible acute UTI UA normal Repeat UA and urine culture ordered History of sciatica Follow up with PCP on discharge History of osteoarthritis of the hip Follow up with PCP on discharge GI prophylaxis: Pantoprazole DVT prophylaxis: Lovenox Diet:Clear iquid Plan discussed with: Patient My Orders Orders - GARRICK DONNELLY DO Procedure Category Date Status Time Soft Diet DIET 06/26/25 Transmitted Dinner Date of Service: Jun 26, 2025 Billing Provider: GARRICK DONNELLY DO Common Visit Codes: [id number] INP/OBS CARE(HIGH) GARRICK DONNELLY DO Jun 26, 2025 21:20
[2025-06-27 01:00] VITALS: BP 107/69; PULSE 89; RESP 16; TEMP 98.1; O2SAT 92
[2025-06-27 05:03] VITALS: BP 115/55; PULSE 65; RESP 17; TEMP 98.3; O2SAT 98
[2025-06-27 11:27] LABS: Free T3 2.28 pg/mL (2.3-4.2)
[2025-06-27 11:30] LABS: Free T4 (Free Thyroxine) 0.89 ng/dL (0.89-1.76)
[2025-06-27] MEDS: HYDROcodone-ACET 10/325MG TAB PO PRN (12:48)
--- NOTE | 2025-06-27 13:55 | DVHPN2 ---
Subjective Patient complains of epigastric pain after eating food and with movement Also has nausea denies vomiting Last bowel movement three days ago denies melena or red blood in stool Patient has history of GERD and treated with omeprazole No EGD or colonoscopy in past Patient had red blood in stool two weeks ago after an episode of constipation and admits to having hemorrhoids Reviewed: Care Plan, H&P, Labs, Medications, Previous Orders Changes from previous H/P or p: No Changes General: Per HPI Gastrointestinal: Nausea, Vomiting, Abdominal Pain Objective Vitals Vital Signs Date Time Temp Pulse Resp B/P (MAP) Pulse Ox O2 Delivery O2 Flow Rate FiO2 06/27/25 08:37 94 16 109/68 06/27/25 08:30 Room Air* 0 21 06/27/25 05:03 98.3 98 98.3 Intake/Output Intake and Output 06/27/25 07:00 Intake Total 600 ml Balance 600 ml Intake Oral 500 ml IV Total 100 ml # Voids 4 Exam General appearance: Alert and oriented no apparent distress Cardio regular rate and rhythm Lungs clear to auscultation Abdomen+ tenderness epigastric area and periumbilical area+ BS Medications Current Medications Medications Dose Ordered Sig/Amira Route Start Time Stop Time Status Last Admin Dose Admin Ondansetron HCl 4 mg Q4HP PRN IV 06/24/25 21:45 06/26/25 18:36 4 MG Morphine Sulfate 2 mg Q4HPRN PRN IV 06/24/25 21:45 Hold 06/25/25 08:46 2 MG Ceftriaxone Sodium 50 ml @ 100 mls/hr DAILY@09 IV 06/25/25 09:00 06/27/25 08:34 100 MLS/HR Sodium Chloride 1,000 ml @ 75 mls/hr [id number] IV 06/24/25 21:45 06/27/25 03:19 75 MLS/HR Pantoprazole Sodium 40 mg DAILY IV 06/25/25 10:00 06/27/25 08:33 40 MG Hydromorphone HCl 0.5 mg Q2HPRN PRN IV 06/25/25 12:15 06/27/25 08:37 0.5 MG Acetaminophen 650 mg Q6HR PO 06/25/25 13:45 06/27/25 06:10 650 MG Acetaminophen/ Hydrocodone Bitart 1 tab Q6HP PRN PO 06/25/25 19:30 06/27/25 12:48 1 TAB Cyclobenzaprine HCl 20 mg Q8HR PO 06/25/25 14:00 06/27/25 13:36 20 MG Hydroxychloroquine Sulfate 200 mg DAILY PO 06/25/25 13:45 06/27/25 08:34 200 MG Mycophenolate Mofetil 500 mg BID PO 06/25/25 22:00 06/27/25 08:35 500 MG Laboratory Results Laboratory Tests 06/26/25 08:16 Urinalysis Test 06/24/25 22:30 06/25/25 17:30 Urine Creatinine 160.79 mg/dL (30.0-125.0) H Urine Protein/Creatinine Ratio 0.18 Urine Total Protein 29.4 mg/dL (1-14) H Urine Color Light-yellow (Yellow) Urine Clarity Clear (Clear) Urine pH 6.5 (5.0-9.0) Urine Specific [place] 1.022 (1.001-1.035) Urine Protein Negative (Negative) Urine Ketones 3+ (Negative) H Urine Blood Negative /uL (Negative) Urine Nitrite Negative (Negative) Urine Bilirubin Negative (Negative) Urine Urobilinogen Normal mg/dL (Negative) Urine Leukocyte Esterase 1+ /uL (Negative) Urine RBC <1 /hpf (0 - 4) Urine Microscopic WBC 11 /HPF (0-5) H Urine Squamous Epithelial Cells Few /hpf (<5) Urine Bacteria None seen /hpf (None Seen) Urine Mucus Few (None Seen) Urine Glucose Normal mg/dL (Normal) Microbiology Microbiology Date/Time Source Procedure Growth Status 06/24/25 22:30 Voided Urine Urine Culture - Preliminary Resulted 06/24/25 19:36 Blood Blood Culture - Preliminary NO GROWTH AFTER 48 HOURS OF INCUBATION. Resulted Assessment/Plan Assessment/Plan Abdominal pain History of GERD Nausea History of lupus UTI Plan Discussed with Dr. Panda Schedule patient for EGD with biopsy tomorrow 06/28/2025. Discussed risks and benefits of procedure and sedation extensively with patient, patient understands and agrees procedure Discussed plan with patient and family at bedside Thank you for this consult Plan discussed with: Patient, Spouse My Orders Orders - ARIANE CHAUDHARY Procedure Category Date Status Time Obtain Consent For: ORDERS 06/27/25 Transmitted 13:49 Npo (Nothing By DIET 06/27/25 Transmitted Mouth) Diet Dinner Obtain Consent For CASA 06/27/25 In Process Anesthesia 13:49 Date of Service: Jun 27, 2025 Billing Provider: ARIANE CHAUDHARY Common Visit Codes: [id number] INP/OBS CARE(HIGH) ARIANE CHAUDHARY Jun 27, 2025 13:55
--- NOTE | 2025-06-27 14:51 | DVHPN2 ---
Assessment/Plan Assessment/Plan progress note 29 F with SLE, afib not on Eliquis, lupus nephritis, ITP, fibromyalgia, admitted for abdominal pain w vomiting and fever. started on abx and fluid 06/27 able to tolerate oral, but still w pain, seen by GI, plan EGD tomorrow, NPO midnight physical exam aox4 obese clear breath sounds s1 s2 rrr bs normal, abdomen soft no le edema lasb ekg imaging reviewed assessment and plan SIRS w end organ damage abdominal pain likely GE pafib nor on Eliquis SLE lupus nephritis ITP hyperthyroidism lactic acidosis asymptomatic bacteriuria GI consult appreciated EGD tomorrow, npo midnight resume home meds pain mgmt. advance diet as tolerated diet npo dvt ppx hold full code Plan discussed with: Patient Date of Service: Jun 27, 2025 Billing Provider: KIEL DUMONT MD Common Visit Codes: [id number] INP/OBS CARE(HIGH) KIEL DUMONT MD Jun 27, 2025 14:51
[2025-06-27] MEDS: POLYETHYLENE GLYCOL 17 GM PWDR PO SCH (17:45)
[2025-06-27 20:00] VITALS: O2SAT 98
[2025-06-27 20:53] VITALS: BP 123/75; PULSE 83; RESP 16; TEMP 98.1; O2SAT 99
[2025-06-27] MEDS: SENNA 8.6 MG TAB PO SCH (22:36)
[2025-06-28] VITALS (9 sets, daily range): BP systolic 103–141; BP diastolic 66–87; PULSE 77–98; RESP 16–20; TEMP 97.4–98.8; O2SAT 92–100
[2025-06-28 06:37] LABS: INR 0.98 (0.9-1.15); Partial Thromboplastin Time 36.1 SEC (24.5-34.5); Prothrombin Time 10.4 sec (9.3-11.8)
--- NOTE | 2025-06-28 07:22 | DVHPN2 ---
Assessment/Plan Assessment/Plan progress note 29 F with SLE, afib not on Eliquis, lupus nephritis, ITP, fibromyalgia, admitted for abdominal pain w vomiting and fever. started on abx and fluid 06/27 able to tolerate oral, but still w pain, seen by GI, plan EGD tomorrow, NPO midnight 06/28 plan for scope today physical exam aox4 obese clear breath sounds s1 s2 rrr bs normal, abdomen soft no le edema lasb ekg imaging reviewed assessment and plan SIRS w end organ damage abdominal pain likely GE pafib nor on Eliquis SLE lupus nephritis ITP hyperthyroidism lactic acidosis asymptomatic bacteriuria GI consult appreciated EGD tomorrow, npo midnight resume home meds pain mgmt. advance diet as tolerated diet npo dvt ppx hold full code Plan discussed with: Patient My Orders Orders - KIEL DUMONT MD Procedure Category Date Status Time Senna Pod Tablet PHA 06/27/25 In Process (Senokot Tablet) 22:00 Polyethylene Glycol PHA 06/27/25 In Process 17g Powder (Miralax 16:30 Date of Service: Jun 28, 2025 Billing Provider: KIEL DUMONT MD Common Visit Codes: [id number] INP/OBS CARE(HIGH) KIEL DUMONT MD Jun 28, 2025 07:22
[2025-06-28 09:07] LABS: Anti-Nuclear Antibody Direct Positive (Negative); Anti-dsDNA Antibody 12 IU/mL (0-9)
[2025-06-28] MEDS ORDERED: SODIUM CHLORIDE LOCK 10 ML ONE (09:31)
--- NOTE | 2025-06-28 15:33 | MEDREC ---
[facility] ASP Intervention Section I [facility] ASP Intervention: Time Sensitive ASTOP (5 DAYS ON CEFTRIAXONE FOR UTI - PLEASE CONSIDER D/C CEFTRIAXONE IF PATIENT CLINICALLY IMPROVED - COURSE OF THERAPY COMPLETE ) FRANCISCO JAVIER MANTILLA PHARMACIST Jun 28, 2025 15:33
[2025-06-28] MEDS: LIDOCAINE VISCOUS 2% 15ML UD ONE (15:45)
[2025-06-28] MEDS: fentaNYL CITRATE 100 MCG/2 ML VL ONE (15:47)
[2025-06-28] MEDS: MIDAZOLAM HCL 5 MG/ML-1ML VIAL ONE (15:47)
[2025-06-28] MEDS: diphenhydrAMINE HCL 50 MG/1 ML VL ONE (15:47)
--- NOTE | 2025-06-28 16:15 | DVHOP2 ---
Operative Report DATE OF OPERATION: 06/28/25 PROCEDURE: Upper Endoscopy with biopsy. PREOPERATIVE INDICATION: The patient is a 29 -year-old female undergoing endoscopy for nausea and vomiting and blood in the stool POSTOPERATIVE DIAGNOSES: 1. 1-2 cm sliding-type hiatal hernia with slightly irregular squamocolumnar junc tion no significant erosive esophagitis 2. Mild to moderate antral gastritis and mild duodenitis of the duodenal bulb otherwise normal examination up to the 2nd and 3rd part of the duodenum PROCEDURE PERFORMED BY: Jace Panda GI NURSE: Nica SCOPE: Olympus videoendoscope. ASA CLASS: 2 PREOPERATIVE MEDICATIONS: Versed 4 mg, Fentanyl 100 mcg, Benadryl 50 mg I administered moderate sedation throughout this _8_ minutes procedure. An independent trained observer pushed medications at my direction, and monitored the patient's level of consciousness and physiological status throughout. PROCEDURE IN DETAIL: After obtaining an informed consent, the patient was placed on left lateral decubitus position. The patient was then sedated with the above medications. A bite block was placed between her teeth. The endoscope was then passed through the oropharynx, into the esophagus, and through the stomach and pylorus up to the second and third part of the duodenum. The endoscope was then withdrawn. The 2nd and 3rd part of the duodenum was normal. Duodenal bulb showed some duodenitis and hyperemia The pre-pyloric area and antrum showed mild antral gastritis with some hyperemia erythema and superficial erosions On retroflexion the fundus cardia and angularis were normal. The endoscope was then withdrawn into distal esophagus Patient had a 1-2 cm sliding-type hiatal hernia with no significant erosive esophagitis The remaining distal and proximal esophagus and oropharynx were unremarkable The patient tolerated the procedure well without difficulty. COMPLICATIONS : None SPECIMENS: Duodenal biopsies Gastric biopsies DISPOSITION: Transfer back to the floor Stable PLAN: 1. Await for biopsy result 2. Will place pt on Protonix 40 mg bid p.o. 3. Carafate suspension 1 g p.o. twice a day 4. Resume GI soft diet advance as tolerated 5. Outpatient follow up with me in 4-6 weeks to discuss results and ongoing further management JACE PANDA MD Jun 28, 2025 16:15
[2025-06-29 01:00] VITALS: BP 120/74; PULSE 98; RESP 19; TEMP 97.4; O2SAT 92
[2025-06-29 05:00] VITALS: BP 92/52; PULSE 72; RESP 18; TEMP 97.2; O2SAT 96
[2025-06-29 08:00] VITALS: PULSE 88; RESP 18
[2025-06-29 09:00] VITALS: BP 109/70; PULSE 78; RESP 16; TEMP 98.3; O2SAT 99
[2025-06-29] MEDS ORDERED: HYDR-4902 PO (09:19)
[2025-06-29] MEDS ORDERED: PANT40TA2 PO (09:19)
[2025-06-29] MEDS ORDERED: SENN8.6C PO (09:19)
[2025-06-29] MEDS ORDERED: MAA30LQ GT (09:19)
--- NOTE | 2025-06-29 09:21 | DVHDS2 ---
Discharge Summary Date of Admission Jun 24, 2025 at 21:33 Date of Discharge: Jun 29, 2025 Labs/Diagnostic Data: Laboratory Results Test 06/28/25 05:19 06/26/25 08:16 06/25/25 17:30 06/25/25 05:50 Prothrombin Time 10.4 sec (9.3-11.8) Prothrombin Time INR 0.98 (0.9-1.15) Activated Partial Thromboplast Time 36.1 SEC (24.5-34.5) Beta HCG, Quantitative 0.9 mIU/mL (1.5-4.2) White Blood Count 3.0 10^3/uL (4.4-10.8) Red Blood Count 3.93 10^6/uL (4.0-5.20) Hemoglobin 11.7 g/dL (12.2-16.2) Hematocrit 34.8 % (36.0-46.0) Mean Corpuscular Volume 88.5 fL (80.0-100.0) Mean Corpuscular Hemoglobin 29.9 pg (28.0-32.0) Mean Corpuscular Hemoglobin Concent 33.7 g/dL (32.0-36.0) Red Cell Distribution Width 13.5 % (11.8-14.3) Platelet Count 178 10^3/uL (140-450) Mean Platelet Volume 7.9 fL (6.9-10.8) Neutrophils (%) (Auto) 41.3 % (37.0-80.0) Lymphocytes (%) (Auto) 45.4 % (10.0-50.0) Monocytes (%) (Auto) 12.3 % (0.0-12.0) Eosinophils (%) (Auto) 0.3 % (0.0-7.0) Basophils (%) (Auto) 0.7 % (0.0-2.0) Neutrophils # (Auto) 1.2 10 ^3/uL (1.6-8.6) Lymphocytes # (Auto) 1.4 10 ^3/uL (0.4-5.4) Monocytes # (Auto) 0.4 10 ^3/uL (0-1.3) Eosinophils # (Auto) 0 10 ^3/uL (0-0.8) Basophils # (Auto) 0 10 ^3/uL (0-0.2) Nucleated Red Blood Cells 0.2 % Sodium Level 141 mmol/L (136-145) Potassium Level 3.9 mmol/L (3.5-5.1) Chloride Level 107 mmol/L (98-107) Carbon Dioxide Level 26 mmol/L (20-31) Anion Gap 8 (5-15) Blood Urea Nitrogen < 5 mg/dL (9-23) Creatinine 0.61 mg/dL (0.550-1.02) Glomerular Filtration Rate Calc 125 mL/min (>90) BUN/Creatinine Ratio 8.2 (10.0-20.0) Serum Glucose 69 mg/dL (74-106) Calcium Level 8.5 mg/dL (8.7-10.4) Total Bilirubin 0.2 mg/dL (0.2-1.0) Aspartate Amino Transferase (AST) 21 U/L (13-40) Alanine Aminotransferase (ALT) 16 U/L (7-40) Alkaline Phosphatase 46 U/L (46-116) Total Protein 5.4 g/dL (5.7-8.2) Albumin 3.4 g/dL (3.2-4.8) Free Thyroxine (T4) Calculated 0.89 ng/dL (0.89-1.76) Free Triiodothyronine (T3) pg/mL 2.28 pg/mL (2.3-4.2) Urine Color Light-yellow (Yellow) Urine Clarity Clear (Clear) Urine pH 6.5 (5.0-9.0) Urine Specific [place] 1.022 (1.001-1.035) Urine Protein Negative (Negative) Urine Ketones 3+ (Negative) Urine Blood Negative /uL (Negative) Urine Nitrite Negative (Negative) Urine Bilirubin Negative (Negative) Urine Urobilinogen Normal mg/dL (Negative) Urine Leukocyte Esterase 1+ /uL (Negative) Urine RBC <1 /hpf (0 - 4) Urine Microscopic WBC 11 /HPF (0-5) Urine Squamous Epithelial Cells Few /hpf (<5) Urine Bacteria None seen /hpf (None Seen) Urine Mucus Few (None Seen) Urine Glucose Normal mg/dL (Normal) Vitamin B12 Level 545 pg/mL (211-911) Vitamin D 25-Hydroxy 44.5 ng/mL (30.0-100) Thyroid Stimulating Hormone (TSH) 0.43 uIU/mL (0.55-4.78) Anti-Nuclear Antibody Screen Positive (Negative) Cytoplasmic ANCA (c-ANCA) Antibody <1:20 titer (Neg:<1:20) Atypical p-ANCA <1:20 titer (Neg:<1:20) Perinuclear ANCA (p-ANCA) Antibody <1:20 titer (Neg:<1:20) Anti-Double Strand DNA Antibody 12 IU/mL (0-9) Complement C3 150 mg/dL (82-167) Complement C4 28 mg/dL (12-38) Test 06/24/25 22:30 06/24/25 21:37 06/24/25 19:29 Urine Creatinine 160.79 mg/dL (30.0-125.0) Urine Protein/Creatinine Ratio 0.18 Urine Total Protein 29.4 mg/dL (1-14) Urine Opiates Screen Pos (NEGATIVE) Urine Fentanyl Screen Pos (NEGATIVE) Urine Barbiturates Screen Neg (NEGATIVE) Urine Phencyclidine Screen Neg (NEGATIVE) Urine Amphetamines Screen Neg (NEGATIVE) Urine Benzodiazepines Screen Neg (NEGATIVE) Urine Cocaine Screen Neg (NEGATIVE) Urine Cannabinoids Screen Neg (NEGATIVE) Lactic Acid Level 1.3 mmol/L (0.4-2.0) Erythrocyte Sedimentation Rate 7 mm/hr (0-20) C-Reactive Protein High Sensitivity 3.92 mg/dL (<1.0) Lipase 24 U/L (12-53) Other Laboratory Tests 06/26/25 08:16 Condition at Discharge: Stable Final Diagnosis/Problems List gastritis, irregular scj abdominal pain 2/2 above SLE Discharge Disposition: Home Discharge Instruct/Medications Diet: Cardiac 2g Na,low cholest Activity: No Restrictions, As Tolerated Follow Up/Referral: f/u with GI 4-6w Scheduled Cephalexin (Keflex Capsule), 1 CAP PO QID Cyclobenzaprine Hcl (Cyclobenzaprine Hcl), 20 MG PO Q8HR, (Reported) Lisinopril (Lisinopril), 2.5 MG PO DAILY, (Reported) Mycophenolate Mofetil (Cellcept), 1 TAB PO BID, (Reported) 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), 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 Pantoprazole Sodium Sesquihydr (Protonix), 40 MG PO DAILY Scheduled PRN Alum & Mag Hydrox-Simethicone (Maalox Plus), 30 ML GT Q6HPRN PRN Hydrocodone-Acetaminophen (Hydrocodone Bitartrate/AC 5-325 mg), 1 TAB PO Q8HP PRN Hydrocodone-Acetaminophen (Hydrocodone Bitartrate/AC 5-325 mg), 1 TAB PO TIDP PRN Sennosides (Senna), 8.6 MG PO DAILYP PRN Miscellaneous Medications Belimumab (Benlysta), 200 MG SC, (Reported) Cholecalciferol (Vitamin D), 5,000 UNIT PO, (Reported) Hydroxychloroquine Sulfate (Hydroxychloroquine Sulfat), 200 MG PO, (Reported) Rimegepant Sulfate (Nurtec), 75 MG PO, (Reported) Discharge Statement: "Patient was advised to return to the ER or call 911 if any headaches, dizziness, shortness of breath, chest pain, abdominal pain, bleeding, fevers, or worsening of medical condition. Patient was counseled about treatment plan, medications, possible side effects, patientverbalized understanding. All questions were answered to the best of my ability. This discharge took greater then 30 minutes in planning, reviewing documentation, counseling the patient, and discussing with other team members." ASSESSMENT ASSESSMENT Assessment gastritis, irregular scj abdominal pain 2/2 above SLE Date of Service: Jun 29, 2025 Billing Provider: KIEL DUMONT MD Common Visit Codes: [id number] DISCH DAY >30min KIEL DUMONT MD Jun 29, 2025 09:21
[2025-06-29 10:19] VITALS: BP 109/70; PULSE 78; RESP 16; TEMP 98.3; O2SAT 99
[2025-06-29] MEDS ORDERED: CEPH250C PO (14:29)
--- NOTE | 2025-06-29 14:29 | DVHDS2 ---
Discharge Summary Date of Admission Jun 24, 2025 at 21:33 Date of Discharge: Jun 29, 2025 Labs/Diagnostic Data: Laboratory Results Test 06/28/25 05:19 06/26/25 08:16 06/25/25 17:30 06/25/25 05:50 Prothrombin Time 10.4 sec (9.3-11.8) Prothrombin Time INR 0.98 (0.9-1.15) Activated Partial Thromboplast Time 36.1 SEC (24.5-34.5) Beta HCG, Quantitative 0.9 mIU/mL (1.5-4.2) White Blood Count 3.0 10^3/uL (4.4-10.8) Red Blood Count 3.93 10^6/uL (4.0-5.20) Hemoglobin 11.7 g/dL (12.2-16.2) Hematocrit 34.8 % (36.0-46.0) Mean Corpuscular Volume 88.5 fL (80.0-100.0) Mean Corpuscular Hemoglobin 29.9 pg (28.0-32.0) Mean Corpuscular Hemoglobin Concent 33.7 g/dL (32.0-36.0) Red Cell Distribution Width 13.5 % (11.8-14.3) Platelet Count 178 10^3/uL (140-450) Mean Platelet Volume 7.9 fL (6.9-10.8) Neutrophils (%) (Auto) 41.3 % (37.0-80.0) Lymphocytes (%) (Auto) 45.4 % (10.0-50.0) Monocytes (%) (Auto) 12.3 % (0.0-12.0) Eosinophils (%) (Auto) 0.3 % (0.0-7.0) Basophils (%) (Auto) 0.7 % (0.0-2.0) Neutrophils # (Auto) 1.2 10 ^3/uL (1.6-8.6) Lymphocytes # (Auto) 1.4 10 ^3/uL (0.4-5.4) Monocytes # (Auto) 0.4 10 ^3/uL (0-1.3) Eosinophils # (Auto) 0 10 ^3/uL (0-0.8) Basophils # (Auto) 0 10 ^3/uL (0-0.2) Nucleated Red Blood Cells 0.2 % Sodium Level 141 mmol/L (136-145) Potassium Level 3.9 mmol/L (3.5-5.1) Chloride Level 107 mmol/L (98-107) Carbon Dioxide Level 26 mmol/L (20-31) Anion Gap 8 (5-15) Blood Urea Nitrogen < 5 mg/dL (9-23) Creatinine 0.61 mg/dL (0.550-1.02) Glomerular Filtration Rate Calc 125 mL/min (>90) BUN/Creatinine Ratio 8.2 (10.0-20.0) Serum Glucose 69 mg/dL (74-106) Calcium Level 8.5 mg/dL (8.7-10.4) Total Bilirubin 0.2 mg/dL (0.2-1.0) Aspartate Amino Transferase (AST) 21 U/L (13-40) Alanine Aminotransferase (ALT) 16 U/L (7-40) Alkaline Phosphatase 46 U/L (46-116) Total Protein 5.4 g/dL (5.7-8.2) Albumin 3.4 g/dL (3.2-4.8) Free Thyroxine (T4) Calculated 0.89 ng/dL (0.89-1.76) Free Triiodothyronine (T3) pg/mL 2.28 pg/mL (2.3-4.2) Urine Color Light-yellow (Yellow) Urine Clarity Clear (Clear) Urine pH 6.5 (5.0-9.0) Urine Specific [place] 1.022 (1.001-1.035) Urine Protein Negative (Negative) Urine Ketones 3+ (Negative) Urine Blood Negative /uL (Negative) Urine Nitrite Negative (Negative) Urine Bilirubin Negative (Negative) Urine Urobilinogen Normal mg/dL (Negative) Urine Leukocyte Esterase 1+ /uL (Negative) Urine RBC <1 /hpf (0 - 4) Urine Microscopic WBC 11 /HPF (0-5) Urine Squamous Epithelial Cells Few /hpf (<5) Urine Bacteria None seen /hpf (None Seen) Urine Mucus Few (None Seen) Urine Glucose Normal mg/dL (Normal) Vitamin B12 Level 545 pg/mL (211-911) Vitamin D 25-Hydroxy 44.5 ng/mL (30.0-100) Thyroid Stimulating Hormone (TSH) 0.43 uIU/mL (0.55-4.78) Anti-Nuclear Antibody Screen Positive (Negative) Cytoplasmic ANCA (c-ANCA) Antibody <1:20 titer (Neg:<1:20) Atypical p-ANCA <1:20 titer (Neg:<1:20) Perinuclear ANCA (p-ANCA) Antibody <1:20 titer (Neg:<1:20) Anti-Double Strand DNA Antibody 12 IU/mL (0-9) Complement C3 150 mg/dL (82-167) Complement C4 28 mg/dL (12-38) Test 06/24/25 22:30 06/24/25 21:37 06/24/25 19:29 Urine Creatinine 160.79 mg/dL (30.0-125.0) Urine Protein/Creatinine Ratio 0.18 Urine Total Protein 29.4 mg/dL (1-14) Urine Opiates Screen Pos (NEGATIVE) Urine Fentanyl Screen Pos (NEGATIVE) Urine Barbiturates Screen Neg (NEGATIVE) Urine Phencyclidine Screen Neg (NEGATIVE) Urine Amphetamines Screen Neg (NEGATIVE) Urine Benzodiazepines Screen Neg (NEGATIVE) Urine Cocaine Screen Neg (NEGATIVE) Urine Cannabinoids Screen Neg (NEGATIVE) Lactic Acid Level 1.3 mmol/L (0.4-2.0) Erythrocyte Sedimentation Rate 7 mm/hr (0-20) C-Reactive Protein High Sensitivity 3.92 mg/dL (<1.0) Lipase 24 U/L (12-53) Other Laboratory Tests 06/26/25 08:16 Brief Hx & Hospital Course: progress note 29 F with SLE, afib not on Eliquis, lupus nephritis, ITP, fibromyalgia, admitted for abdominal pain w vomiting and fever. started on abx and fluid 06/27 able to tolerate oral, but still w pain, seen by GI, plan EGD tomorrow, NPO midnight 06/28 plan for scope today, done, hiatal hernia, slight abnromal scj, gastritis 06/29 discharged, f.u with cp and gi in 4 weeks. protonix and maalox Condition at Discharge: Stable Final Diagnosis/Problems List SIRS w end organ damage abdominal pain likely GE gastritis w/ abnormal scj pafib nor on Eliquis SLE lupus nephritis ITP hyperthyroidism lactic acidosis asymptomatic bacteriuria Discharge Disposition: Home Discharge Instruct/Medications Diet: Cardiac 2g Na,low cholest Activity: No Restrictions, As Tolerated Follow Up/Referral: f/u with GI 4-6w Scheduled Cyclobenzaprine Hcl (Cyclobenzaprine Hcl), 20 MG PO Q8HR, (Reported) Lisinopril (Lisinopril), 2.5 MG PO DAILY, (Reported) Mycophenolate Mofetil (Cellcept), 1 TAB PO BID, (Reported) 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), 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 Pantoprazole Sodium Sesquihydr (Protonix), 40 MG PO DAILY Scheduled PRN Alum & Mag Hydrox-Simethicone (Maalox Plus), 30 ML GT Q6HPRN PRN Hydrocodone-Acetaminophen (Hydrocodone Bitartrate/AC 5-325 mg), 1 TAB PO Q8HP PRN Hydrocodone-Acetaminophen (Hydrocodone Bitartrate/AC 5-325 mg), 1 TAB PO TIDP PRN Sennosides (Senna), 8.6 MG PO DAILYP PRN Miscellaneous Medications Belimumab (Benlysta), 200 MG SC, (Reported) Cholecalciferol (Vitamin D), 5,000 UNIT PO, (Reported) Hydroxychloroquine Sulfate (Hydroxychloroquine Sulfat), 200 MG PO, (Reported) Rimegepant Sulfate (Nurtec), 75 MG PO, (Reported) Discharge Statement: "Patient was advised to return to the ER or call 911 if any headaches, dizziness, shortness of breath, chest pain, abdominal pain, bleeding, fevers, or worsening of medical condition. Patient was counseled about treatment plan, medications, possible side effects, patientverbalized understanding. All questions were answered to the best of my ability. This discharge took greater then 30 minutes in planning, reviewing documentation, counseling the patient, and discussing with other team members." ASSESSMENT ASSESSMENT Assessment gastritis, irregular scj abdominal pain 2/2 above SLE Date of Service: Jun 29, 2025 Billing Provider: KIEL DUMONT MD Common Visit Codes: [id number] DISCH DAY >30min KIEL DUMONT MD Jun 29, 2025 14:29
== END 2025-06-29 11:48 | disposition home or self-care (01) | DRG 241 ==
LOC: ER 18:25 → EDBD 18:25 → OVERFLOW 21:33 → WEST WING 06-25 01:38
PROVIDERS: ADMIT Student in an Organized Health Care Education/Training Program; ATTEND Student in an Organized Health Care Education/Training Program
PROC: 0DB68ZX Excision of Stomach, Via Natural or Artificial Opening Endoscopic, Diagnostic (ICD-10-PCS; 2025-06-28)
PROC: 0DB98ZX Excision of Duodenum, Via Natural or Artificial Opening Endoscopic, Diagnostic (ICD-10-PCS; principal; 2025-06-28 15:38)
DX: K29.70 Gastritis, unspecified, without bleeding (principal); D69.3 Immune thrombocytopenic purpura; E87.20 Acidosis, unspecified; A04.9 Bacterial intestinal infection, unspecified; M32.14 Glomerular disease in systemic lupus erythematosus; N12 Tubulo-interstitial nephritis, not specified as acute or chronic; R65.10 Systemic inflammatory response syndrome (SIRS) of non-infectious origin without acute organ dysfunction; E05.90 Thyrotoxicosis, unspecified without thyrotoxic crisis or storm; I12.9 Hypertensive chronic kidney disease with stage 1 through stage 4 chronic kidney disease, or unspecified chronic kidney disease; N18.9 Chronic kidney disease, unspecified; K29.80 Duodenitis without bleeding; I48.0 Paroxysmal atrial fibrillation; K44.9 Diaphragmatic hernia without obstruction or gangrene; N83.202 Unspecified ovarian cyst, left side; K21.9 Gastro-esophageal reflux disease without esophagitis; Z88.8 Allergy status to other drugs, medicaments and biological substances; Z90.49 Acquired absence of other specified parts of digestive tract; Z98.51 Tubal ligation status; Z82.49 Family history of ischemic heart disease and other diseases of the circulatory system; Z80.6 Family history of leukemia; Z83.3 Family history of diabetes mellitus; Z80.49 Family history of malignant neoplasm of other genital organs
CPT/HCPCS: 36415; 43239; 71045; 74176; 76856; 80053; 80307; 81001; 82306; 82570; 82607; 83605; 83690; 84156; 84439; 84443; 84481; 84702; 85025; 85610; 85652; 85730; 86038; 86141; 86160; 86225; 86256; 86850; 86900; 86901; 87040; 87086; 93005; G0378; J0131; J1885; J2250; J2405; J2470; J7517